=== PATIENT | female | born 1970 | race Caucasian/White ===

== ENCOUNTER 2017-12-21 18:03 | Emergency (ER) | payer OTHER, SELFPAY ==
[2017-12-21 18:13] VITALS: BP 139/85; PULSE 92; RESP 20; TEMP 37.2; O2SAT 94
--- NOTE | 2017-12-21 19:04 | ED.GENADUL_ITS ---
Discharge Plan Disposition Patient Disposition: HOME Condition: Stable Discharge Details Chief Complaint: RespSymp Clinical Impression: Infection, respiratory tract Primary Care Provider: Zaid Callahan ED Provider: Braden Garner Home Meds and New Rx's Prescriptions: New doxycycline hyclate 100 mg capsule 100 mg PO BID Qty: 14 RF: 0 benzonatate 200 mg capsule 200 mg PO TID PRN (Reason: cough) Qty: 30 RF: 0 Continue trazodone 50 MG tablet 50 mg PO HS RF: 0 citalopram 20 MG tablet 20 mg PO HS RF: 0 lorazepam 1 MG tablet 1 mg PO DAILY PRN PRNQty: 4 RF: 0 Discharge Instructions Instructions: Upper Respiratory Infection (ED), Cold Symptoms (ED) Additional Instructions: Return immediately to the emergency department for any new or significant worsening of your symptoms otherwise take medication as prescribed and follow- up with your primary care provider for reassessment if not improving over the next week. You may use the provided inhaler 1-2 puffs every 4 hours as needed for chest tightness Stand Alone Forms: Work Release Referrals: Zaid Callahan PA [Primary Care Provider] - 1 week (if not improving) Discharge Data Discharge Date/Time-TO BE ENTERED AT DEPARTURE: 12/21/17 19:35 Medical Decision Making Patient presenting the emergency department for chief complaint of cough that is worsened. Patient reports upper respiratory tract infectious type symptoms over the past 2 weeks but specifically over the past 24-48 hours she has had severe worsening of his symptom with cough now becoming productive, further fatigue malaise, and worsening of cough. Physical exam is unremarkable except for rhonchi heard diffusely throughout right side that cleared with coughing and some very mild diffuse inspiratory and expiratory wheezing. Differential diagnosis to include continued viral illness, bronchitis, or pneumonia. Patient is a heavy smoker so there is concern for possible bacterial illness given worsening of symptoms after initial 2-week course of illness. Given no specific persistent focal lung findings I do not feel that radiological imaging of the chest is warranted but I do feel that patient should be placed on antibiotics. Patient also given inhaler and Tessalon Perle prescription. Patient encouraged to return for any new or worsening symptoms otherwise follow- up with her primary care provider if not improving over the next week after discussion of diagnosis and plan of care patient has no further needs, questions , or concerns and states clear understanding to return to the emergency department for any worsening symptoms. HPI General Mode of arrival: ambulatory . Date/Time Provider Initiated Documentation: 12/21/17 18:46 . Limitations to Documentation: no limitations . Information obtained by: patient . History of Present Illness 47 year old F presents to the emergency department with the chief complaint of Cough and chest tightness, described as mild, with intensity rated at 2. Quality is described as aching (tight), and is localized to the chest. Patient started experiencing this week(s) (2) and it has been constant. No relieving factors improve symptom(s), No exacerbating factors reported . Patient did receive the following treatments prior to arrival, other (NyQuil) Related Data Home Medications Medication Instructions Recorded Confirmed citalopram 20 mg PO HS 05/11/14 12/21/17 lorazepam 1 mg PO DAILY PRN PRN #4 tab 05/11/14 12/21/17 trazodone 50 mg PO HS 05/11/14 12/21/17 benzonatate 200 mg PO TID PRN #30 cap 12/21/17 doxycycline hyclate 100 mg PO BID #14 cap 12/21/17 Previous Rx's Medication Instructions Recorded lorazepam 1 mg PO DAILY PRN PRN #4 tab 05/11/14 benzonatate 200 mg PO TID PRN #30 cap 12/21/17 doxycycline hyclate 100 mg PO BID #14 cap 12/21/17 Allergies Allergy/AdvReac Type Severity Reaction Status Date / Time Antihistamines - Piperazine Allergy Cardiac Unverified 12/21/17 18:18 Dysrythmia Sulfa (Sulfonamide Allergy Skin Rash Unverified 12/21/17 18:18 Antibiotics) General Stated Complaint: RespSymp NICKIE: 4 Review of Systems Constitutional Reports chills, Reports fatigue, Reports fever(s) and Reports malaise ENT Reports hoarseness, Reports nasal congestion, Reports sinus pressure and Reports sore throat Cardiovascular Denies dyspnea Respiratory Denies dyspnea Musculoskeletal Denies joint swelling Integumentary/Breasts Denies rash Endocrine Reports fatigue PFSH Social History Smoking/Tobacco Use Status: Current every day Exam Const General: cooperative, comfortable and no acute distress Orientation: alert, awake and oriented x3 HENMT Head: normal to inspection Ears: hearing grossly normal bilaterally Mouth: oral mucosae normal Throat: tonsils normal and posterior oropharynx abnormal erythema (mild) Eyes General: appearance normal, both eyes and all related structures Conjunctivae: conjunctivae normal Sclera: sclerae normal Neck Neck: normal visual inspection, full ROM, no lymphadenopathy, meningismus present and no JVD Resp Effort & Inspection: normal respiratory effort, able to speak in complete sentences, no audible wheezes, cough Quality of cough: actively coughing and not labored Auscultation: rhonchi right upper and right lower and wheezes scattered wheezes Cardio Rate: regular rate Rhythm: regular rhythm Heart Sounds: S1 normal and S2 normal Skin General skin exam: no rashes or lesions noted and dry skin Rashes: no rashes Neuro General: alert, awake, oriented x3 and gait normal Course Vital Signs Temperature 37.2 C 12/21/17 18:13 Pulse 92 H 12/21/17 18:13 Respiratory Rate 20 12/21/17 18:13 Blood Pressure 139/85 12/21/17 18:13 Pulse Oximetry 94 L 12/21/17 18:13 Temperature 37.2 C 12/21/17 18:13 Temperature Source Oral 12/21/17 18:13 Pulse 92 H 12/21/17 18:13 Respiratory Rate 20 12/21/17 18:13 Respiratory Effort 12/21/17 18:16 Blood Pressure 139/85 12/21/17 18:13 Blood Pressure Position Sitting 12/21/17 18:13 Pulse Oximetry 94 L 12/21/17 18:13 Oxygen Delivery Method Room Air 12/21/17 18:13 Oxygen Flow Rate 0 12/21/17 18:13 Pain Level 2 12/21/17 18:13
[2017-12-21] MEDS: Doxycycline Hyclate 100 MG CAP PO (19:20)
[2017-12-21] MEDS: Albuterol HFA 8 GM 60 PUFF INH IH (19:20)
[2017-12-21] MEDS: Benzonatate 100 MG CAP PO (19:20)
[2017-12-21] MEDS: Benzonatate 100 MG CAP 400 MG PO (19:20)
== END 2017-12-21 19:35 | disposition home or self-care (01) ==
PROVIDERS: Emergency Provider Nurse Practitioner Family; PCP Physician Assistant Medical
DX: J06.9 Acute upper respiratory infection, unspecified (principal); F17.210 Nicotine dependence, cigarettes, uncomplicated
CPT/HCPCS: 99283

== ENCOUNTER 2018-11-29 12:46 | Outpatient (REF) | payer SELFPAY ==
--- NOTE | 2018-11-29 17:00 | PAPFT_PTH ---
PATIENT: Sherri Hayes LOC: [facility] #:[id number] AGE/SX: 48/F ROOM: RE11/29/[address]: Zaid Callahan : 1970 BED: DIS: 11/29/2018 SPEC #: [id number] RECD: 11/30/18 12:58 STATUS: YANCI REShana #: [id number] LUCILA: 11/29/18 17:[address]: Zaid Callahan DEPT: [facility] Cytology RECD BY: Shraddha Arellano Tissues: 1 - CX/ENDOCX FOR PAP SMEARS Procedures: PAP THIN PREP/UVM Screening HPV DNA PROBE Comments: [id number]
== END 2018-11-29 13:06 ==
LOC: NCHCN 12:46
PROVIDERS: PCP Physician Assistant Medical; Visit Provider Physician Assistant Medical
DX: Z12.4 Encounter for screening for malignant neoplasm of cervix (principal); Z11.51 Encounter for screening for human papillomavirus (HPV)
CPT/HCPCS: 88142; 87624

== ENCOUNTER 2018-12-18 16:01 | Emergency (ER) | payer SELFPAY ==
[2018-12-18 16:07] VITALS: BP 155/103; PULSE 93; RESP 18; TEMP 36.7; O2SAT 98
--- NOTE | 2018-12-18 17:06 | W.ED.GENAD ---
Discharge Plan Disposition Patient Disposition: HOME Condition: Improving Discharge Details Chief Complaint: DentalOral Clinical Impression: Odontalgia Primary Care Provider: Zaid Callahan ED Provider: Shun Marley Home Meds and New Rx's Prescriptions: New penicillin V potassium 500 mg tablet 500 mg PO QID 10 Days Qty: 40 RF: 0 Continued trazodone 50 MG tablet 50 mg PO HS RF: 0 citalopram 20 MG tablet 20 mg PO HS RF: 0 Discharge Instructions Instructions: Toothache (ED) Additional Instructions: Continue salt water gargles, is scheduled ibuprofen. Take penicillin as prescribed. Follow-up with dentistry to establish care. Return if you have increased facial swelling, develop a fever, or any other acute concerns. May apply warm compress to area to speed healing. Medical Decision Making 48-year-old female with poor general dental care. She presents from home with day 2 of right jaw swelling. She has mild dental caries on exam with developing right buccal swelling. Consistent with periapical infection. Given dental block with improvement. Will place on penicillin. She will establish dentistry. She understands return precautions. HPI General Mode of arrival: ambulatory. Date/Time Provider Initiated Documentation: 12/18/18 16:51. Limitations to Documentation: no limitations. Information obtained by: patient. History of Present Illness 48 year old F presents to the emergency department with the chief complaint of Right facial swelling x2 days, described as moderate, Quality is described as aching and dull, and is localized to the right. Patient reports no radiation. Patient started experiencing this hour(s) and it has been constant. No relieving factors improve symptom(s), No exacerbating factors reported . Patient notes no other symptoms. and other (No drooling, change to voice, no fever. Swallowing normally.). Patient did receive the following treatments prior to arrival, NSAID Related Data Home Medications Medication Instructions Recorded Confirmed citalopram 20 mg PO HS 05/11/14 12/18/18 trazodone 50 mg PO HS 05/11/14 12/18/18 penicillin V potassium 500 mg PO QID 10 Days #40 tab 12/18/18 Previous Rx's Medication Instructions Recorded penicillin V potassium 500 mg PO QID 10 Days #40 tab 12/18/18 Allergies Allergy/AdvReac Type Severity Reaction Status Date / Time Antihistamines - Piperazine Allergy Cardiac Unverified 12/18/18 16:11 Dysrythmia Sulfa (Sulfonamide Allergy Skin Rash Unverified 12/18/18 16:11 Antibiotics) General Stated Complaint: DentalOral NICKIE: 5 Review of Systems Review of Systems Narrative: See HPI. 6 systems reviewed and otherwise negative [facility] Social History Smoking/Tobacco Use Status: Current every day Alcohol Intake: current Alcohol Intake frequency: holidays/special occasions only Drug use: Occasionally Substance use type: marijuana Do you feel safe at home: Yes Do you feel safe in your relationship?: Yes Exam Narrative Exam Narrative: GEN: awake, alert, oriented 3. Pleasant, well groomed, interactive. HEAD: Normocephalic, atraumatic ENT: Mucous membranes moist, oropharynx with dental caries right first second third mandibular molars, mild right cheek swelling. No lingual swelling. Uvula midline., External ear exam unremarkable EYES: PERRL, EOMI NECK: Full ROM, no MARIA ELENA, no menigismus EXT: Full ROM, no edema, no rash Neuro: Grossly normal neurologic exam, conversant, interactive. Psych: Speech fluent, thoughts congruent, affect normal Course Vital Signs Vital signs: Vital Signs Temperature 36.7 C 12/18/18 16:07 Pulse 93 H 12/18/18 16:07 Respiratory Rate 18 12/18/18 16:07 Blood Pressure 155/103 H 12/18/18 16:07 Pulse Oximetry 98 12/18/18 16:07 Temperature 36.7 C 12/18/18 16:07 Temperature Source Temporal Artery Scan 12/18/18 16:07 Pulse 93 H 12/18/18 16:07 Respiratory Rate 18 12/18/18 16:07 Respiratory Effort Non-Labored 12/18/18 16:07 Blood Pressure 155/103 H 12/18/18 16:07 Pulse Oximetry 98 12/18/18 16:07 Oxygen Delivery Method Room Air 12/18/18 16:07 Oxygen Flow Rate 0 12/18/18 16:07 Pain Level 8 12/18/18 17:01 Procedures Nerve Block Nerve Block 1: Local Anesthetic: Lidocaine 1% and Bupivicaine 0.25% Side: right Intraoral Nerve Block: inferior alveolar Patient Tolerated Procedure: well Complications: none
[2018-12-18] MEDS: Penicillin V POTASSIUM 500 MG TAB PO (17:27)
== END 2018-12-18 17:27 | disposition home or self-care (01) ==
PROVIDERS: Emergency Provider Emergency Medicine; PCP Physician Assistant Medical
DX: K08.89 Other specified disorders of teeth and supporting structures (principal)
CPT/HCPCS: 64400; 99283

== ENCOUNTER 2019-12-12 12:13 | Outpatient (REF) | payer SELFPAY ==
--- NOTE | 2019-12-12 | PAPFT_PTH ---
PATIENT: Sherri Hayes LOC: [facility]#:[id number] AGE/SX: 49/F ROOM: RE12/12/[address]: Zaid Callahan : 1970 BED: DIS: 12/12/2019 SPEC #: [id number] RECD: 12/13/19 12:55 STATUS: YANCI REShana #: [id number] LUCILA: 12/12/19 00:[address]: Zaid Callahan DEPT: [facility] Cytology RECD BY: Shraddha Arellano Tissues: 1 - CX/ENDOCX FOR PAP SMEARS Procedures: PAP THIN PREP/UVM Screening HPV DNA PROBE Comments: [id number]
== END 2019-12-12 12:33 ==
LOC: NCHCN 12:13
PROVIDERS: PCP Physician Assistant Medical; Visit Provider Physician Assistant Medical
DX: Z12.4 Encounter for screening for malignant neoplasm of cervix (principal); Z87.42 Personal history of other diseases of the female genital tract; Z11.51 Encounter for screening for human papillomavirus (HPV)
CPT/HCPCS: 88142; 87624

== ENCOUNTER 2021-03-28 09:39 | Emergency (ER) | payer SELFPAY ==
[2021-03-28 09:41] VITALS: BP 152/84; PULSE 77; RESP 18; TEMP 37; O2SAT 97
--- NOTE | 2021-03-28 10:00 | DI.RAD_ITS ---
Exam(s) XR HIP RT AP LAT ONLY EXAM: XR HIP RT AP LAT ONLY CLINICAL HISTORY: pain few days, fall 1 month ago. TECHNIQUE: 2D digital imaging was performed. COMPARISON: No exams were available for comparison FINDINGS: BONES: No acute fracture is present. No bony destructive lesion is seen. JOINTS: No dislocation present. SOFT TISSUE: Normal. IMPRESSION: Unremarkable radiographs of the right hip. Unremarkable radiographs of the pelvis. DATA REPOSITORY: RADIATION DOSE DELIVERED:
--- NOTE | 2021-03-28 10:00 | DI.RAD_ITS ---
Exam(s) XR LUMBAR SPINE COMPLETE EXAM: XR LUMBAR SPINE COMPLETE CLINICAL HISTORY: pain right, fall 1mo. TECHNIQUE: 2D digital imaging was performed. COMPARISON: No exams were available for comparison FINDINGS: BONES: No fracture or destructive lesion. Vertebral bodies are unremarkable. Mild facet hypertrophy i dentified L5-S1.. DISKS: Moderate to severe narrowing of the L5-S1 disc space. The remaining intervertebral disc space s are maintained. ALIGNMENT: Lumbar spinal alignment is within normal limits. SOFT TISSUE: Normal. IMPRESSION: Degenerative changes at L5-S1. No acute abnormality. DATA REPOSITORY: RADIATION DOSE DELIVERED:
--- NOTE | 2021-03-28 10:15 | ED.GENADUL_ITS ---
Discharge Plan Disposition Patient Disposition: HOME Condition: Stable Discharge Details Clinical Impression: Acute pain of right hip, Low back pain Primary Care Provider: Zaid Callahan ED Provider: Israel Kaba Home Meds and New Rx's Prescriptions: Continued trazodone 50 mg Tablet 50 mg PO QHS RF: 0 citalopram 20 mg Tablet 20 mg PO QHS RF: 0 Discharge Instructions Instructions: Acute Low Back Pain (ED), Hip Pain (ED) Care Plan Goals: Please take aleve - dose according to label. Your next dose is tonight. Please take acetaminophen (tylenol) - 650mg every 6 hours by mouth as needed for pain. Use lidocaine patches. These are [id number]. Dose according to label. Please follow-up with your primary care physician as scheduled this week. Return to the ER immediately for any worsening or new concerning symptoms. Stand Alone Forms: Work Release Referrals: Zaid Callahan PA [Primary Care Provider] - Medical Decision Making 1030??51-year-old female here with right hip pain that starts in her right buttock and radiate posterior and laterally down her leg, progressive over the past 2 days. No recent trauma. She did have a fall about a month ago and injured her foot, the fall. Foot has healed but she is concerned that she was favoring her leg and had modified gait for some time. Patient is neurovascular intact distally. She has no inflammatory changes low back or over her hip. Concern for lumbar disc herniation or nerve root compression. Consider potential for reactive arthritis post COVID-19. I will provide treatment with Toradol IV Valium p.o. --X-ray of the lumbar spine interpreted by radiology: IMPRESSION: 1. There is no evidence of acute fracture.There is no evidence of malalignment or dislocation. 2. Intervertebral disc space narrowing L5/S1 consistent with degenerative disc disease. X-ray of the right hip interpreted by radiology: IMPRESSION: There is no evidence of acute fracture.There is no evidence of malalignment or dislocation. Labs reviewed and nondiagnostic. -- Patient reassessed and has had some pain improvement. Will place lidocaine patch. -- Patient still having pain. Solu-medrol 60mg IV given. Plan for discharge with outpatient followup. Usual and customary discharge instructions reviewed with patient. -- Patient still with pain. She was able to stand and dress and use commode. I explained to patient that unfortunately we could not correct problem completely today and that healing will take time. I explained that therapies provided today include NSAID and steroid would take time to have full effect. Patient seems dissatisfied. I offered to admit the patient for pain control and she declined and requested discharge. I offered walker and PT consult and patient declined. I encouraged her to return to the ED if pain worsens and/or she cannot ambulate as could hospitalize for pain control. HPI General Mode of arrival: EMS . Date/Time Provider Initiated Documentation: 03/28/21 10:10 . Limitations to Documentation: no limitations . Information obtained by: patient and EMS . HPI Narrative: 51-year-old female here with chief complaint of right hip pain. Patient notes about 1 month ago she tripped and fell down her stairs. During the fall she hyper plantarflexed her right foot she had pain in her toes. She does not recall impacting her hip during the fall but does note that she had some discomfort in her hip that seemed to wax and wane. She was concerned that she was babying her right foot that her abnormal gait may have been hurting her hip. Over the past 2 days pain in her hip has been much worse, progressive over this time and severe now. She had difficulty sleeping last night. She has tried Aleve and Tylenol without much relief. Last dose of Aleve was last night. Patient does note pain is localized mainly into her right hip but radiates posterior laterally down her leg and is also present in her buttock. She does states she has some mild low back pain. Patient denies rash. No numbness or weakness. No history of IV drug use. Patient did have COVID-19 2.5 weeks ago and has been asymptomatic for some time. No fever. Related Data Home Medications Medication Instructions Recorded Confirmed citalopram 20 mg PO QHS 03/28/21 03/28/21 trazodone 50 mg PO QHS 03/28/21 03/28/21 Allergies Allergy/AdvReac Type Severity Reaction Status Date / Time Antihistamines - Alkylamine AdvReac Psychosis Unverified 03/28/21 09:47 Sulfa (Sulfonamide AdvReac Other (See Unverified 03/28/21 09:47 Antibiotics) Comment) General Stated Complaint: Orthopedic NICKIE: 3 Review of Systems All systems reviewed & are unremarkable except as noted in HPI and below Constitutional Constitutional: Denies fever(s) Musculoskeletal Musculoskeletal: Reports as per HPI PFSH All Active Problems (Updated 03/28/21 @ 11:36 by Israel Kaba MD) Acute pain of right hip (Acute) Low back pain (Acute) Social History Smoking/Tobacco Use Status: Current every day Tobacco Type: cigarettes Smoking risk assessment performed?: Yes Alcohol Intake: former Drug use: Never Substance use type: does not use Do you feel safe at home: Yes Do you feel safe in your relationship?: Yes Exam Const General: cooperative and no acute distress Neck Neck: trachea midline and supple Resp Auscultation: clear to auscultation bilaterally, no rales, no rhonchi and no wheezes Cardio Rate: regular rate and not tachycardic Rhythm: regular rhythm GI Palpation: soft, not firm, no guarding, no masses, not rigid and nontender Back/Spine/Pelvis Back: No erythema and No ecchymosis Thoracic/Lumbar Spine: paraspinal tenderness (rt lumbar), No thoracic spinal tenderness and No lumbar spinal tenderness Skin General skin exam: no rashes or lesions noted Neuro General: patient alert, patient awake and tone normal Extrem General: no edema Right lower extremity: hip/thigh Details: abnormal ROM Details: pain with active ROM during Details: with ABduction and to external rotation; no tenderness, no swelling, no ecchymosis and no unusual warmth Psych Appearance: grossly normal Mental Status: mental status grossly normal Course Vital Signs Vital signs: Vital Signs Temperature 37.0 C 03/28/21 09:41 Pulse 77 03/28/21 09:41 Respiratory Rate 18 03/28/21 09:41 Blood Pressure 152/84 H 03/28/21 09:41 Pulse Oximetry 97 03/28/21 09:41 Temperature 37.0 C 03/28/21 09:41 Temperature Source Temporal Artery Scan 03/28/21 09:41 Pulse 77 03/28/21 09:41 Respiratory Rate 18 03/28/21 09:41 Respiratory Effort Non-Labored 03/28/21 09:50 Blood Pressure 152/84 H 03/28/21 09:41 Blood Pressure Position Sitting 03/28/21 09:41 Pulse Oximetry 97 03/28/21 09:41 Oxygen Delivery Method Room Air 03/28/21 09:41 Oxygen Flow Rate 0 03/28/21 09:41 Pain Level 5 03/28/21 09:41
[2021-03-28] MEDS: Normal Saline Flush 10 ML SYR IVP (10:28)
[2021-03-28] MEDS: Ketorolac 30 MG/ML VIAL IVP (10:28)
[2021-03-28] MEDS: diazePAM 2 MG TAB PO (10:28)
[2021-03-28 10:33] LABS: Abs Immature Grans 0.03 10^3/uL (0.0-0.06); Absolute Basophil Count 0.04 10^3/uL (0.0-0.2); Absolute Eosinophil Count 0.08 10^3/uL (0.0-0.7); Absolute Lymphocyte Count 1.36 10^3/uL (1.2-3.4); Absolute Neutrophil Count 7.57 10^3/uL (1.2-6.7); Basophils % 0.4; Eosinophils % 0.8; HCT 45.9 % (36.0-46.0); HGB 14.8 g/dL (11.2-15.7); Immature Grans % 0.3; Lymphocytes % 14.3; MCH 30.3 pg (27.0-33.0); MCHC 32.2 % (32.0-36.0); MCV 94.1 fL (80-95); MPV 9.9 fL (8.0-11.0); Monocytes % 4.2; Nucleated RBC 0 %; Platelet Count 304 10^3/uL (130-400); RBC 4.88 10^6/uL (3.93-5.22); RDW 12.2 % (11.7-14.6); RDW-SD 42.5 fL; WBC 9.48 10^3/uL (4.4-10.8)
[2021-03-28 10:36] LABS: ESR 27 mm/hr (0-30)
[2021-03-28 10:43] LABS: BUN 9 mg/dL (7-18); CREATININE 0.6 mg/dL (0.55-1.02); Calcium 8.9 mg/dL (8.5-10.1); Chloride 106 mmol/L (98-107); Glucose 102 mg/dL (74-106); Potassium 3.9 mmol/L (3.5-5.1); Sodium 140 mmol/L (136-145)
[2021-03-28 10:47] LABS: C-Reactive Protein < 0.05 mg/dL (0.0-0.3)
--- NOTE | 2021-03-28 11:07 | DI.VRAD_ITS ---
PROCEDURE INFORMATION: Exam: XR Right Hip Exam date and time: 03/28/2021 10:13 AM Age: 51 years old Clinical indication: Hip pain; Right hip TECHNIQUE: Imaging protocol: XR Right hip. Views: 2 or 3 views hip with pelvis when performed. COMPARISON: No relevant prior studies available. FINDINGS: Bones/joints: There is no evidence of acute fracture.There is no evidence of malalignment or dislocation. Degenerative changes in the right hip Soft tissues: Unremarkable. IMPRESSION: There is no evidence of acute fracture.There is no evidence of malalignment or dislocation. Dictated and Authenticated by: Neelima Gutiérrez MD. Ordering:SANTANA Wood MD
--- NOTE | 2021-03-28 11:08 | DI.VRAD_ITS ---
PROCEDURE INFORMATION: Exam: XR Lumbosacral Spine Exam date and time: 03/28/2021 10:13 AM Age: 51 years old Clinical indication: Weakness and other: Fall x1 month ago, back pain TECHNIQUE: Imaging protocol: XR of the lumbosacral spine. Views: 4 or 5 views. COMPARISON: CR XR HIP RT AP LAT ONLY 03/28/2021 10:53 AM FINDINGS: Bones/joints: There is no evidence of acute fracture.There is no evidence of malalignment or dislocation. Intervertebral disc space narrowing L5/S1 consistent with degenerative disc disease. Soft tissues: Unremarkable. IMPRESSION: 1. There is no evidence of acute fracture.There is no evidence of malalignment or dislocation. 2. Intervertebral disc space narrowing L5/S1 consistent with degenerative disc disease. Dictated and Authenticated by: Neelima Gutiérrez MD. Ordering:SANTANA Wood MD
[2021-03-28] MEDS: Lidocaine 5% Patch 1 PATCH TP (11:35)
[2021-03-28 12:03] VITALS: BP 139/68; PULSE 67; RESP 17; TEMP 36.9; O2SAT 94
[2021-03-28] MEDS: methylPREDNISolone SUCC 125 MG VIAL 60 MG IVP (12:11)
--- NOTE | 2021-03-30 18:43 | PT.INNT ---
Date of service: 03/30/21 Time of Service: 18:43 PT Notes Visit Reasons: Renae Referral for PT was sent on 03/28/2021 at 13:05 but patient was discharged the same day. No PT services were provided for this ED admission. Thank you for the opportunity to participate in the care of this patient. Gisel Goetz PT, DPT, CLT [facility] [place], [place]
== END 2021-03-28 13:12 | disposition home or self-care (01) ==
PROVIDERS: Emergency Provider Student in an Organized Health Care Education/Training Program; PCP Physician Assistant Medical
DX: M25.551 Pain in right hip (principal); M54.50 Low back pain, unspecified; Z86.16 Personal history of COVID-19
CPT/HCPCS: 36415; 80048; 85652; 96374; 96375; 99284; 72110; 73502; 85025; 86140; 99283; J1885; J2930

== ENCOUNTER 2021-03-28 09:46 | Emergency (ER) | payer SELFPAY | END 2021-03-28 09:51 | PROVIDERS: PCP Physician Assistant Medical | DX: Z53.29 Procedure and treatment not carried out because of patient's decision for other reasons (principal) ==

== ENCOUNTER 2021-04-01 13:46 | Inpatient (IN) | payer SELFPAY ==
[2021-04-01 14:00] VITALS: BP 117/81; PULSE 78; RESP 18; TEMP 36.6; O2SAT 96
[2021-04-01 14:12] LABS: Abs Immature Grans 0.05 10^3/uL (0.0-0.06); Absolute Eosinophil Count 0.17 10^3/uL (0.0-0.7); Absolute Lymphocyte Count 2.27 10^3/uL (1.2-3.4); Basophils % 0.3; Eosinophils % 1.5; HCT 45.8 % (36.0-46.0); Immature Grans % 0.4; Lymphocytes % 19.7; MCH 30.6 pg (27.0-33.0); MCHC 32.8 % (32.0-36.0); MCV 93.5 fL (80-95); MPV 10.2 fL (8.0-11.0); Monocytes % 6.8; Neutrophils % 71.3; Nucleated RBC 0 %; Platelet Count 298 10^3/uL (130-400); RDW 12.5 % (11.7-14.6); RDW-SD 43.2 fL; WBC 11.54 10^3/uL (4.4-10.8)
[2021-04-01 14:15] LABS: Absolute Basophil Count 0.03 10^3/uL (0.0-0.2); Absolute Monocyte Count 0.78 10^3/uL (0.1-0.8); Absolute Neutrophil Count 8.23 10^3/uL (1.2-6.7)
[2021-04-01 14:22] LABS: ESR 32 mm/hr (0-30)
[2021-04-01 14:27] LABS: ALT 23 U/L (14-59); AST 18 U/L (15-37); Albumin 4.1 g/dL (3.4-5.0); Alkaline Phosphatase 82 U/L (46-116); BUN 26 mg/dL (7-18); Bilirubin, Total 0.4 mg/dL (0.2-1.0); CREATININE 0.6 mg/dL (0.55-1.02); Calcium 9.2 mg/dL (8.5-10.1); Chloride 99 mmol/L (98-107); Glucose 99 mg/dL (74-106); Potassium 3.8 mmol/L (3.5-5.1); Sodium 136 mmol/L (136-145); Total Protein 8.2 g/dL (6.4-8.2)
[2021-04-01 14:29] LABS: C-Reactive Protein < 0.05 mg/dL (0.0-0.3)
--- NOTE | 2021-04-01 14:37 | W.ED.GENAD ---
Discharge Plan Disposition Patient Disposition: [facility] INPATIENT Condition: Improving Discharge Details Clinical Impression: Lumbar disc herniation, Lumbar nerve root compression Admit Date/Time: 04/01/21 19:21 Admit Provider: Guru Fernandez Attending Provider: Guru Fernandez Primary Care Provider: Zaid Callahan ED Provider: Israel Kaba Discharge Data Discharge Date/Time-TO BE ENTERED AT DEPARTURE: 04/01/21 20:50 Medical Decision Making <Nisha Kaba MD - Last Filed: 04/16/21 10:29> Sherri Russell is a 51-year-old woman with history of depression presenting to the emergency department with right thigh and buttock pain. On exam there is mild tenderness palpation of the right buttock and right lateral thigh, lumbar spine, anterior/lateral hip and abdomen nontender to palpation. Significant pain with ranging right hip, no ranging hip 0 to 45 degrees is minimally painful. Concern for sciatica, possible cauda equina syndrome given new onset constipation. Very low suspicion for process involving the soft tissue such as myositis, deep space abscess given no identifiable risk factors and inconsistent exam. Exam/history is not consistent with septic arthritis, sepsis. Plan for MRI lumbar spine, screening labs. Patient received fentanyl en route, pain controlled at this time. Labs reviewed, WBC 11.54, ESR 32. Pt signed out to Dr. Israel Kaba at time of shift change with MRI, dispo pending. Medical Records Medical records reviewed: Yes I reviewed the patient's medical records. Lab Data Lab results reviewed: Yes I reviewed the patient's lab results. Labs: Laboratory Tests Range/Units 04/01/21 04/01/21 04/01/21 14:00 14:00 14:00 WBC (4.4-10.8) 10^3/uL 11.54 H RBC (3.93-5.22) 10^6/uL 4.90 Hgb (11.2-15.7) g/dL 15.0 Hct (36.0-46.0) % 45.8 MCV (80-95) fL 93.5 MCH (27.0-33.0) pg 30.6 MCHC (32.0-36.0) % 32.8 RDW (11.7-14.6) % 12.5 Plt Count (130-400) 10^3/uL 298 MPV (8.0-11.0) fL 10.2 Immature Gran % 0.4 Neutrophils % 71.3 Lymphocytes % 19.7 Monocytes % 6.8 Eosinophils % 1.5 Basophils % 0.3 Nucleated RBC % % 0 Absolute Neutrophils (1.2-6.7) 10^3/uL 8.23 H Absolute Lymphocytes (1.2-3.4) 10^3/uL 2.27 Absolute Monocytes (0.1-0.8) 10^3/uL 0.78 Absolute Eosinophils (0.0-0.7) 10^3/uL 0.17 Absolute Basophils (0.0-0.2) 10^3/uL 0.03 ESR (0-30) mm/hr 32 H Sodium (136-145) mmol/L 136 Potassium (3.5-5.1) mmol/L 3.8 Chloride (98-107) mmol/L 99 Carbon Dioxide (21.0-32.0) mmol/L 26.0 Anion Gap (3-11) mmol/L 11.0 BUN (7-18) mg/dL 26 H Creatinine (0.55-1.02) mg/dL 0.6 Estimated GFR/1.73 m2 (mL/min/1.73m2) >= 60.00 Glucose (74-106) mg/dL 99 Calcium (8.5-10.1) mg/dL 9.2 Total Bilirubin (0.2-1.0) mg/dL 0.4 AST (15-37) U/L 18 ALT (14-59) U/L 23 Alkaline Phosphatase (46-116) U/L 82 C-Reactive Protein (0.0-0.3) mg/dL < 0.05 Total Protein (6.4-8.2) g/dL 8.2 Albumin (3.4-5.0) g/dL 4.1 <Israel Kaba MD - Last Filed: 04/01/21 20:30> Care signed out by Dr. Mary Kaba with plan to follow-up on MRI of the lumbar spine and reassess patient for disposition. MRI was reviewed and interpreted by radiology:IMPRESSION: Right foraminal disc protrusion at L4-5 causing nerve root impingement. Degenerative disc changes at L5-S1 causing mild left neural foraminal narrowing. Patient was treated with Dilaudid IM, Toradol IV, and prednisone 40 mg p.o. She was reassessed and continued to have pain and was not able to ambulate. Plan for hospitalization for ambulatory dysfunction and continued pain control. I called and spoke with on-call hospitalist, Dr. Jackson, discussed ED presentation and course, she will admit the patient. Lab Data Lab results reviewed: Yes I reviewed the patient's lab results. Labs: Laboratory Tests Range/Units 04/01/21 04/01/21 04/01/21 14:00 14:00 14:00 WBC (4.4-10.8) 10^3/uL 11.54 H RBC (3.93-5.22) 10^6/uL 4.90 Hgb (11.2-15.7) g/dL 15.0 Hct (36.0-46.0) % 45.8 MCV (80-95) fL 93.5 MCH (27.0-33.0) pg 30.6 MCHC (32.0-36.0) % 32.8 RDW (11.7-14.6) % 12.5 Plt Count (130-400) 10^3/uL 298 MPV (8.0-11.0) fL 10.2 Immature Gran % 0.4 Neutrophils % 71.3 Lymphocytes % 19.7 Monocytes % 6.8 Eosinophils % 1.5 Basophils % 0.3 Nucleated RBC % % 0 Absolute Neutrophils (1.2-6.7) 10^3/uL 8.23 H Absolute Lymphocytes (1.2-3.4) 10^3/uL 2.27 Absolute Monocytes (0.1-0.8) 10^3/uL 0.78 Absolute Eosinophils (0.0-0.7) 10^3/uL 0.17 Absolute Basophils (0.0-0.2) 10^3/uL 0.03 ESR (0-30) mm/hr 32 H Sodium (136-145) mmol/L 136 Potassium (3.5-5.1) mmol/L 3.8 Chloride (98-107) mmol/L 99 Carbon Dioxide (21.0-32.0) mmol/L 26.0 Anion Gap (3-11) mmol/L 11.0 BUN (7-18) mg/dL 26 H Creatinine (0.55-1.02) mg/dL 0.6 Estimated GFR/1.73 m2 (mL/min/1.73m2) >= 60.00 Glucose (74-106) mg/dL 99 Calcium (8.5-10.1) mg/dL 9.2 Total Bilirubin (0.2-1.0) mg/dL 0.4 AST (15-37) U/L 18 ALT (14-59) U/L 23 Alkaline Phosphatase (46-116) U/L 82 C-Reactive Protein (0.0-0.3) mg/dL < 0.05 Total Protein (6.4-8.2) g/dL 8.2 Albumin (3.4-5.0) g/dL 4.1 HPI <Nisha Kaba MD - Last Filed: 04/16/21 10:29> General Mode of arrival: EMS. Date/Time Provider Initiated Documentation: 04/01/21 13:53. Limitations to Documentation: no limitations. Information obtained by: patient, RN notes reviewed and old records reviewed. HPI Narrative: Sherri Russell is a 51-year-old woman with history of depression presenting to the emergency department with right thigh and buttock pain. Per record review, patient was seen here 03/28/2021 for same, had lumbar x-rays, right hip x-rays that were negative for acute process. Patient reports that approximately 1.5 months ago she tripped over her cat, and has been having progressively worsening pain in the right lateral thigh and right buttock since that time. She reports that she did have some pain in those areas prior to the incident, but it has worsened greatly since. She reports that injury was a twisting injury and there was no impact. 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 Patient reports that since she was discharged here she has essentially been lying in bed. She reports that her has given her a bucket and she has been sitting up on the edge of the bed, peeing in a bucket, and lying down flat again and has otherwise not stood up or sat secondary to pain. She reports that pain is much worse with ranging her right hip, mildly worse with palpating the right lateral thigh. She denies any other pain, fever, cough, shortness of breath, vomiting, diarrhea, numbness, weakness, rash. Patient reports that she has not had a bowel movement since 03/26, though she states that she thinks this is because she has had relatively little to eat secondary to pain. She denies urinary changes. Patient denies any history of IV drug use. She denies back surgeries or any prior injury to the right thigh. Related Data Home Medications Medication Instructions Recorded Confirmed citalopram 20 mg tablet 20 mg PO HS 05/11/14 12/18/18 trazodone 50 mg tablet 50 mg PO HS 05/11/14 12/18/18 citalopram 20 mg tablet 20 mg PO QHS 03/28/21 04/01/21 trazodone 50 mg tablet 50 mg PO QHS 03/28/21 04/01/21 Acetaminophen [Tylenol] 650 mg PO 0600,1000,1400,1800 #0 04/03/21 ibuprofen 600 mg tablet 600 mg PO QID #30 tab 04/03/21 lidocaine 5 % topical patch 2 patch TOPICAL Q24H #14 ea 04/03/21 tramadol 50 mg tablet 100 mg PO Q6H PRN PRN #12 tab 04/03/21 Previous Rx's Medication Instructions Recorded Acetaminophen [Tylenol] 650 mg PO 0600,1000,1400,1800 #0 04/03/21 ibuprofen 600 mg tablet 600 mg PO QID #30 tab 04/03/21 lidocaine 5 % topical patch 2 patch TOPICAL Q24H #14 ea 04/03/21 tramadol 50 mg tablet 100 mg PO Q6H PRN PRN #12 tab 04/03/21 Allergies Allergy/AdvReac Type Severity Reaction Status Date / Time Antihistamines - Piperazine Allergy Cardiac Unverified 04/07/21 13:20 Dysrythmia Sulfa (Sulfonamide Allergy Skin Rash Unverified 04/07/21 13:20 Antibiotics) Antihistamines - Alkylamine AdvReac Psychosis Unverified 04/07/21 13:20 General Stated Complaint: Orthopedic NICKIE: 4 Review of Systems <Nisha Kaba MD - Last Filed: 04/16/21 10:29> Narrative: Constitutional: denies fevers Eyes: denies eye pain ENT: denies ear pain, dental pain, sore throat Cardiovascular: denies chest pain, edema Respiratory: denies SOB, cough GI: denies abdominal pain, vomiting, diarrhea : denies flank pain MSK: Reports right lateral thigh pain, right buttock pain, denies back pain, neck pain, other arthralgias, myalgias Skin: denies rash Neuro: denies headaches, numbness, weakness PFSH <Nisha Kaba MD - Last Filed: 04/16/21 10:29> All Active Problems (Updated 04/07/21 @ 13:20 by Donna Holguin) Acute pain of right hip (Acute) Low back pain (Acute) Acute lumbar radiculopathy (Acute) L4-L5 disc bulge (Acute) Lumbar disc herniation (Acute) Lumbar nerve root compression (Acute) Medical History Former consumption of alcohol Insomnia Smoker Social History (System 04/07/21 @ 13:20 by Donna Holguin) Smoking/Tobacco Use Status: Current every day Tobacco Type: cigarettes Smoking risk assessment performed?: Yes Alcohol Intake: former Drug use: Never Substance use type: does not use Do you feel safe at home: Yes Do you feel safe in your relationship?: Yes Exam <Nisha Kaba MD - Last Filed: 04/16/21 10:29> Narrative Exam Narrative: Constitutional: well and [id number], pleasant, conversing normally HENT: head atraumatic/normocephalic/normal inspection, mucous membranes moist Eyes: conjunctiva normal, sclera normal, pupils 3mm b/l Neck: no stridor, normal ROM, trachea midline Resp: normal work of breathing, speaking in full sentences Cardio: normal rate, normal rhythm GI: abdomen soft, non-tender, non-distended Back: normal inspection, no rash, no tenderness palpation of the lumbar spine or lumbar paraspinals Skin: warm, dry, normal color, no rash Neuro: alert, not altered, grossly non-focal, normal tone, normal motor function of the right lower extremity, sensation intact Ext: Right inguinal area nontender to palpation, right anterior and lateral hip nontender to palpation, right buttock with mild tenderness that reproduces pain, right lateral thigh with mild tenderness that reproduces pain, no deformity/crepitus/mass/overlying skin changes to right buttock/lateral thigh and areas of reported tenderness. Positive straight leg test on the right, negative straight leg test on the left. Patient is able to fully extend right hip and flex to approximately 45 degrees before severe pain is elicited. DP pulses intact and symmetric. Psych: normal mood, normal affect, normal behavior Course <Nisha Kaba MD - Last Filed: 04/16/21 10:29> Vital Signs Vital signs: Vital Signs Temperature 36.6 C 04/01/21 14:00 Respiratory Rate 18 04/01/21 14:00 Pulse Oximetry 96 04/01/21 14:00 Temperature 36.6 C 04/01/21 14:00 Temperature Source Skin 04/01/21 14:00 Respiratory Rate 18 04/01/21 14:00 Respiratory Effort 04/01/21 14:00 Pulse Oximetry 96 04/01/21 14:00 Oxygen Delivery Method Room Air 04/01/21 14:00 Oxygen Flow Rate 0 04/01/21 14:00 Pain Level 6 04/01/21 14:00 Lab/Test Results Lab/Test Results: Laboratory Tests Range/Units 04/01/21 04/01/21 04/01/21 14:00 14:00 14:00 WBC (4.4-10.8) 10^3/uL 11.54 H RBC (3.93-5.22) 10^6/uL 4.90 Hgb (11.2-15.7) g/dL 15.0 Hct (36.0-46.0) % 45.8 MCV (80-95) fL 93.5 MCH (27.0-33.0) pg 30.6 MCHC (32.0-36.0) % 32.8 RDW (11.7-14.6) % 12.5 Plt Count (130-400) 10^3/uL 298 MPV (8.0-11.0) fL 10.2 Immature Gran % 0.4 Neutrophils % 71.3 Lymphocytes % 19.7 Monocytes % 6.8 Eosinophils % 1.5 Basophils % 0.3 Nucleated RBC % % 0 Absolute Neutrophils (1.2-6.7) 10^3/uL 8.23 H Absolute Lymphocytes (1.2-3.4) 10^3/uL 2.27 Absolute Monocytes (0.1-0.8) 10^3/uL 0.78 Absolute Eosinophils (0.0-0.7) 10^3/uL 0.17 Absolute Basophils (0.0-0.2) 10^3/uL 0.03 ESR (0-30) mm/hr 32 H Sodium (136-145) mmol/L 136 Potassium (3.5-5.1) mmol/L 3.8 Chloride (98-107) mmol/L 99 Carbon Dioxide (21.0-32.0) mmol/L 26.0 Anion Gap (3-11) mmol/L 11.0 BUN (7-18) mg/dL 26 H Creatinine (0.55-1.02) mg/dL 0.6 Estimated GFR/1.73 m2 (mL/min/1.73m2) >= 60.00 Glucose (74-106) mg/dL 99 Calcium (8.5-10.1) mg/dL 9.2 Total Bilirubin (0.2-1.0) mg/dL 0.4 AST (15-37) U/L 18 ALT (14-59) U/L 23 Alkaline Phosphatase (46-116) U/L 82 C-Reactive Protein (0.0-0.3) mg/dL < 0.05 Total Protein (6.4-8.2) g/dL 8.2 Albumin (3.4-5.0) g/dL 4.1 Sign Out <Nisha Kaba MD - Last Filed: 04/16/21 10:29> Sign Out Data: Sign Out Comment: Patient signed out to Dr. Israel Kaba at time of shift change with MRI, reassessment pending Last updated by Nisha Kaba MD at 04/01/21 15:35
--- NOTE | 2021-04-01 15:45 | DI.MRI_ITS ---
Exam(s) MR LUMBAR SPINE WO EXAM: MR LUMBAR SPINE WO CLINICAL HISTORY: right thigh and buttock pain. TECHNIQUE: Multiplanar multisequence MRI of the Lumbar spine was performed. An accelerated protocol was performed due to patient's pain. COMPARISON: CR,XR XR LUMBAR SPINE COMPLETE from 03/28/2021 FINDINGS: Bones: The last intervertebral disc space is designated the L5/S1 level for the numbering purpose of this examination. The vertebral body heights are well maintained. Alignment is satisfactory. The ma rrow signal characteristics are unremarkable. Cord: The conus tip ends at the T12 level. It is of normal size and signal intensity. T12-L1: No disc herniations or bulges are present. No central spinal canal or neural foraminal stenos is. L1-2: No disc herniations or bulges are present. No central spinal canal or neural foraminal stenosis . L2-3: No disc herniations or bulges are present. No central spinal canal or neural foraminal stenosis . L3-4: No disc herniations or bulges are present. No central spinal canal or neural foraminal stenosis . L4-5: Right foraminal disc protrusion causing narrowing of the normal foramen and impinging on the ex iting nerve root.. No central spinal canal stenosis. L5-S1: Moderate loss of disc height. Degenerative signal changes in the ankle endplates. Mild disc bulging, eccentric toward the left, causing mild neural foraminal narrowing.. No central spinal can al stenosis. Soft tissues: The visualized SI joints and sacrum are well maintained. The paraspinal soft tissues ar e unremarkable. IMPRESSION: Right foraminal disc protrusion at L4-5 causing nerve root impingement. Degenerative disc changes at L5-S1 causing mild left neural foraminal narrowing. DATA REPOSITORY:
[2021-04-01] MEDS: Ketorolac 15 MG/ML VIAL IVP (16:16)
[2021-04-01] MEDS: predniSONE 20 MG TAB 40 MG PO (16:17)
[2021-04-01] MEDS: HYDROmorphone 2 MG/ML VIAL 1 MG IM (16:17)
[2021-04-01 16:28] VITALS: BP 127/73; PULSE 74; RESP 18; O2SAT 96
[2021-04-01 18:17] VITALS: BP 116/69; PULSE 72; RESP 18; O2SAT 94
--- NOTE | 2021-04-01 19:46 | W.PM.HP.N ---
Date of service: 04/01/21 Time of Service: 19:46 Assessment and Plan Assessment and plan (1) Acute lumbar radiculopathy: Status: Acute Assessment and plan: MRI obtained shows L4-L5 disc protrusion with nerve root compression as the cause of her pain that has been refractory to outpatient pain control regimens. She will be admitted for a more aggressive pain regimen. She did receive a dose of steroids in the ED. I did consider these but they have shown little to no benefit in clinical studies so will hold off for now. - 1g Tylenol q6h - ibuprofen 600mg tid prn - 2mg IV morphine q4h prn - Miralax daily while on narcotics (2) Smoker: Status: Acute Assessment and plan: Long standing nicotine addiction. -nicotine patches available as needed (3) Impaired ambulation: Status: Acute Assessment and plan: Due to pain. I am hopeful that better pain control her ambulation will improve. - pain control - PT consult placed (4) Former consumption of alcohol: Status: Acute Assessment and plan: Former alcohol use disorder but she stopped drinking several years ago, no acute concerns. (5) Insomnia: Status: Acute Assessment and plan: She takes trazodone and citalopram every night at home to help with sleep issues, we will continue this. - continue home trazadone - continue home citalopram Qualifiers: Insomnia type: unspecified Qualified Code(s): G47.00 - Insomnia, unspecified History of Present Illness This is an otherwise healthy 51 yo female who initially presented to the ED on 03/28/21 for hip and back pain. At that visit Xrays of the hip and lumbar spine were obtained and non-revealing. She was offered admission at that time for pain control but the patient refused and requested discharge to attempt a home outpatient pain regimen. Unfortunately she did not improve in the interim and developed worsening pain. She represented to the ED today for this reason. She underwent MRI that found L4-L5 right forimanal disc protrudement causing nerve root impingement. She has received IM Dilaudid, tordal and prednisone i nthe Ed without much improvement in her pain. She will be admitted for acute lumbar radiculopathy refractory to outpatient pain management. She used to be a heavy drinker, however stopped drinking a several years ago. She denies any drug use (some recreational marijuana use). She is a current smoker of 10 cigarettes a day.She has never had this sort of pain previously. She denies and bladder or bowel dysfunction and does not have any inner thigh parasthesias. He denies chest pain, shortness of breath, abdominal pains or any other symptoms to speak of aside from the pain that is in her lower pain, right hip and down the right leg. She would like to be full code. Review of Systems All systems reviewed & are unremarkable except as noted in HPI and below PFSH All Active Problems (Updated 04/01/21 @ 21:39 by Marta Treviño MD) Insomnia (Acute) Former consumption of alcohol (Acute) Lumbar disc herniation (Acute) Lumbar nerve root compression (Acute) Impaired ambulation (Acute) Smoker (Acute) L4-L5 disc bulge (Acute) Acute lumbar radiculopathy (Acute) Acute pain of right hip (Acute) Low back pain (Acute) Social History Smoking/Tobacco Use Status: Current every day Tobacco Type: cigarettes Smoking risk assessment performed?: Yes Alcohol Intake: former Drug use: Never Substance use type: does not use Do you feel safe at home: Yes Do you feel safe in your relationship?: Yes Meds Allergies and Home Medications Allergies Allergy/AdvReac Type Severity Reaction Status Date / Time Antihistamines - Alkylamine AdvReac Psychosis Unverified 04/01/21 16:16 Sulfa (Sulfonamide AdvReac Other (See Unverified 04/01/21 16:16 Antibiotics) Comment) Home Medications Medication Instructions Recorded Confirmed Type citalopram 20 mg PO QHS 03/28/21 04/01/21 History trazodone 50 mg PO QHS 03/28/21 04/01/21 History Exam Const General: no acute distress Nutritional Appearance: well nourished [facility] Head: normocephalic Ears: external ears normal and no periauricular adenopathy General nose exam: nasal mucous membranes and turbinates normal Face and sinus: sinuses nontender Mouth: oropharynx normal and moist mucous membranes Teeth and gingiva: dentition normal Eyes General: appearance normal, both eyes and all related structures Pupils: PERRL Neck Neck: normal visual inspection and no lymphadenopathy Chest Chest: normal inspection of the chest Resp Effort & Inspection: normal respiratory effort Auscultation: clear to auscultation bilaterally, no rales, no rhonchi and no wheezes Cardio Rate: regular rate Rhythm: regular rhythm Heart Sounds: S1 normal, S2 normal and no murmurs Pulses: radial pulses present bilaterally GI Inspection: normal to inspection Palpation: soft Skin General skin exam: no rashes or lesions noted Neuro General: patient alert, patient awake and patient oriented x3 Extrem General: no clubbing, cyanosis or edema Psych Mental Status: mental status grossly normal Affect: normal affect Attitude: cooperative Results Labs Result diagrams: 04/01/21 14:00 04/01/21 14:00 Labs: Laboratory Results - last 24 hr 04/01/21 04/01/21 04/01/21 14:00 14:00 14:00 WBC 11.54 H RBC 4.90 Hgb 15.0 Hct 45.8 MCV 93.5 MCH 30.6 MCHC 32.8 RDW 12.5 Plt Count 298 MPV 10.2 Immature Gran % 0.4 Neutrophils % 71.3 Lymphocytes % 19.7 Monocytes % 6.8 Eosinophils % 1.5 Basophils % 0.3 Nucleated RBC % 0 Absolute Neutrophils 8.23 H Absolute Lymphocytes 2.27 Absolute Monocytes 0.78 Absolute Eosinophils 0.17 Absolute Basophils 0.03 ESR 32 H Sodium 136 Potassium 3.8 Chloride 99 Carbon Dioxide 26.0 Anion Gap 11.0 BUN 26 H Creatinine 0.6 Estimated GFR/1.73 m2 >= 60.00 Glucose 99 Calcium 9.2 Total Bilirubin 0.4 AST 18 ALT 23 Alkaline Phosphatase 82 C-Reactive Protein < 0.05 Total Protein 8.2 Albumin 4.1 Last Vital Signs Temp 36.6 C 04/01/21 14:00 Pulse 72 04/01/21 18:17 Resp 18 04/01/21 18:17 BP 116/69 04/01/21 18:17 Pulse Ox 94 04/01/21 18:17
[2021-04-01 20:39] VITALS: BP 118/69; PULSE 72; TEMP 36.3; O2SAT 92
[2021-04-01 21:00] VITALS: BP 112/72; BP 112/74; PULSE 72; PULSE 74; RESP 16; TEMP 36.9; O2SAT 96
[2021-04-01 21:01] LABS: Source Nasal/Nares
[2021-04-01] MEDS: Enoxaparin 40 MG/0.4 ML SYR SC (21:53)
[2021-04-01] MEDS: MORPHine 4 MG/ML SYR 2 MG IVP (21:53)
[2021-04-01] MEDS: Citalopram 20 MG TAB PO (21:54)
[2021-04-01] MEDS: traZODone 50 MG TAB PO (21:54)
[2021-04-01] MEDS: Acetaminophen 500 MG TAB 1000 MG PO (21:54)
[2021-04-01] MEDS: Normal Saline Flush 10 ML SYR IVP (21:55)
[2021-04-01 23:30] VITALS: BP 103/62; PULSE 82; RESP 16; TEMP 36.9; O2SAT 95
[2021-04-02 00:12] LABS: COVID-19 PCR Negative (Negative)
[2021-04-02 03:20] VITALS: BP 111/66; PULSE 80; RESP 17; TEMP 36.8; O2SAT 93
[2021-04-02] MEDS: Ibuprofen 600 MG TAB PO ×4 (03:31→20:51)
[2021-04-02] MEDS: MORPHine 4 MG/ML SYR 2 MG IVP ×3 (06:42→22:27)
[2021-04-02] MEDS: Acetaminophen 500 MG TAB 1000 MG PO (06:43)
[2021-04-02] MEDS: Docusate Sodium 100 MG CAP PO (06:44)
[2021-04-02] MEDS: Normal Saline Flush 10 ML SYR IVP ×3 (06:44→22:28)
[2021-04-02 06:57] LABS: Abs Immature Grans 0.01 10^3/uL (0.0-0.06); Absolute Basophil Count 0.01 10^3/uL (0.0-0.2); Absolute Eosinophil Count 0.02 10^3/uL (0.0-0.7); Absolute Lymphocyte Count 1.54 10^3/uL (1.2-3.4); Absolute Monocyte Count 0.39 10^3/uL (0.1-0.8); Basophils % 0.1; Eosinophils % 0.3; HCT 46.4 % (36.0-46.0); HGB 15.1 g/dL (11.2-15.7); Immature Grans % 0.1; Lymphocytes % 20.7; MCH 30.6 pg (27.0-33.0); MCHC 32.5 % (32.0-36.0); MCV 93.9 fL (80-95); MPV 10.3 fL (8.0-11.0); Monocytes % 5.2; Neutrophils % 73.6; Nucleated RBC 0 %; Platelet Count 303 10^3/uL (130-400); RBC 4.94 10^6/uL (3.93-5.22); RDW 12.3 % (11.7-14.6); RDW-SD 42.6 fL; WBC 7.44 10^3/uL (4.4-10.8)
[2021-04-02 07:01] LABS: Absolute Neutrophil Count 5.48 10^3/uL (1.2-6.7)
[2021-04-02 07:05] LABS: BUN 28 mg/dL (7-18); CREATININE 0.6 mg/dL (0.55-1.02); Calcium 9.5 mg/dL (8.5-10.1); Chloride 99 mmol/L (98-107); Glucose 110 mg/dL (74-106); Potassium 4.4 mmol/L (3.5-5.1); Sodium 133 mmol/L (136-145)
[2021-04-02 07:46] VITALS: BP 106/67; PULSE 65; RESP 18; TEMP 36.4; O2SAT 95
[2021-04-02] MEDS: Polyethylene Glycol 3350 17 GM PACKET PO (08:05)
--- NOTE | 2021-04-02 08:52 | PDOC.CMIN ---
- If Service Date Differs Date of service: 04/02/21 Time of Service: 08:52 Care Management Initial Assess REASON FOR HOSPITALIZATION:: acute lumbar radiculopathy PAST MEDICAL HISTORY/PAST SURGICAL HISTORY:: All Active Problems (Updated 04/01/21 @ 21:39 by Marta Treviño MD). Insomnia (Acute). Former consumption of alcohol (Acute). Lumbar disc herniation (Acute). Lumbar nerve root compression (Acute). Impaired ambulation (Acute). Smoker (Acute). L4-L5 disc bulge (Acute). Acute lumbar radiculopathy (Acute). Acute pain of right hip (Acute). Low back pain (Acute) PREVIOUS FUNCTIONAL STATUS/SOCIAL/FAMILY SUPPORTS:: Sherri lives in a single family home in [place] with her fiancee and his father. She has 3 children - 2 sons who live locally and a daughter in [place]. 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 CURRENT FUNCTIONAL STATUS:: Sherri was sitting up in bed when CM met with her. She was pleasant and stated that her pain is much better than when she was first admitted. Sherri did state however that she is unable to walk at all. A PT consult has been ordered. Sherri also shared that she has no insurance. She has a full time staff interpreter job and is now eligible for benefits but this hospital stay won't be covered. CM provided her with a Financial Assist packet. ADVANCE DIRECTIVES:: none on file Has patient been provided with info about the portal/API?: Yes Did the patient sign up for the portal?: No CODE STATUS:: Full Code INSURANCE COVERAGE / FINANCIAL ISSUES:: none currently CURRENT HOME/COMMUNITY SERVICES/EQUIPMENT:: none currently PRIMARY CARE PHYSICIAN:: Zaid Callahan POTENTIAL DISCHARGE NEEDS:: follow up with PCP and plan of care PATIENT/FAMILY EDUCATION NEEDS:: Review of discharge instructions, activity, limitations, medications, follow up plan, discuss [employer] TRANSPORTATION:: via private vehicle with family PLAN:: Sherri will likely be discharged home with no new services. She will follow up with her community providers and plan of care and transport with family. CM will continue to support Sherri and her discharge needs.
[2021-04-02] MEDS: Lidocaine 5% Patch 2 PATCH TP (10:45)
[2021-04-02] MEDS: Acetaminophen 325 MG TAB 650 MG PO ×3 (11:00→17:36)
[2021-04-02] MEDS: Milk of Magnesia 30 ML CUP PO (11:36)
[2021-04-02 11:41] VITALS: BP 117/79; PULSE 77; RESP 18; TEMP 37; O2SAT 95
[2021-04-02] MEDS: diazePAM 2 MG TAB PO (12:54)
--- NOTE | 2021-04-02 13:38 | IN_ITS ---
Date of service: 04/02/21 Time of Service: 13:38 PT Notes Visit Reasons: Lumbar Disc Protrusion Physical Therapy Inpatient Initial Evaluation Date: 04/02/2021 Referring Doctor: Marta Jackson MD PT Orders: PT CONSULT: Eval/Treat Precautions: Fall. Standard. Activity as tolerated. 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 PMHX: All Active Problems (Updated 04/01/21 @ 21:39 by Marta Treviño MD) Insomnia (Acute) Former consumption of alcohol (Acute) Lumbar disc herniation (Acute) Lumbar nerve root compression (Acute) Impaired ambulation (Acute) Smoker (Acute) L4-L5 disc bulge (Acute) Acute lumbar radiculopathy (Acute) Acute pain of right hip (Acute) Low back pain (Acute) Social History/Home Situation: Lives with jose in a private room with 5 steps to enter and with 10 steps to the second of the house where their bedroom is. 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 Independent with all aspects of ADLs prior to admission Equipment Owned/DME: None Subjective: Kylie indicates that her symptoms began a month ago when she accidentally stepped on her cat resting on the top step of the stairs to the bedroom on her way down. She indicates that it was around 9 PM and the area was dark and she was not able to see anything on the floor. She states that she is slid down 4 steps and injured her right toes which caused her to limp and favor that side for over a month. She indicated that last week with her symptoms almost fully resolved, she engaged in sexual activity with her fianc? and ended up with worsening symptoms of right low back pain and right hip pain. Patient got into excruciating pain and needed to lie back down into position of comfort. Objective: General Observation: Highly favoring R hip and R buttock. Unable to tolerate sitting position for more than a minute. Mental Status: Alert and oriented as to person, place, time, and purpose. Able to pay attention, focus, and respond appropriately. Pain: 10/10 while sitting at edge of bed and on palpation of R gluteal area along the piriformis muscle ROM: Trunk: Unable to test due to severe pain Right Upper Extremity: Shoulder Flexion WFL. Shoulder abduction WFL. Elbow flexion WFL. Wrist flexion WFL. Functional opening and closing of hand WFL. Left Upper Extremity: Shoulder Flexion WFL. Shoulder abduction WFL. Elbow flexion WFL. Wrist flexion WFL. Functional opening and closing of hand WFL. Right Lower Extremity: Hip flexion WFL. Hip abduction WFL. Knee flexion WFL. Ankle dorsiflexion WFL. Ankle plantarflexion WFL. Left Lower Extremity: Hip flexion WFL. Hip abduction WFL. Knee flexion WFL. An kle dorsiflexion WFL. Ankle plantarflexion WFL. Strength: Right Upper Extremity: Shoulder flexors 5/5. Shoulder abductors 5/5. Elbow flexors 5/5. Elbow extensors 5/5. Rn Homecare strong. Left Upper Extremity: Shoulder flexors 5/5. Shoulder abductors 5/5. Elbow flexors 5/5. Elbow extensors 5/5. Rn Homecare strong. Right Lower Extremity: Hip flexors 3/5. Hip abductors 3/5. Knee flexors 3/5. Knee extensors 3/5. Ankle dorsiflexors 5/5. Ankle plantarflexors 5/5. Left Lower Extremity: Hip flexors 3/5. Hip abductors 3/5. Knee flexors 3/5. Knee extensors 3/5. Ankle dorsiflexors 5/5. Ankle plantarflexors 5/5. Bed Mobility/Transfers: Rolling with independent Left side-lying to sit with standby assist with HOB at 45 degrees Sit to left side-lying with standby assist Sit to stand unable at this time Stand to sit unable at this time Bed to bedside commode unable at this time Bedside commode to bed unable at this time Bed to reclining chair unable at this time Reclining chair to bed unable at this time Gait: Unable at this time Balance: Static Sitting: Poor Dynamic Sitting: Poor Static Standing: Unable at this time Dynamic Standing: Unable at this time Special Tests: Mobility Limitations Standardized Measure [facility] AM-PAC 6 clicks Basic Mobility Inpatient Short Form: Raw Score: 7 CMS Score: 92% deficit Tripod sign: Positive SLR: Unable FABERE Test: Unable Palpation of R lumbar paraspinals: Tenderness felt Informed Consent/Education: Patient was instructed in purpose of PT consult and plan of care. Agreeable to proceed with established PT POC to achieve personal goals. Assessment: L4-L5 radiculopaty hinders patient from performing mobility ADLs for this assessment. Severe nerve pain reported with pgentle pressure on piriformis muscle on the R. Will wait until pain is better managed before another attempt at mobility assessment is made tomorrow morning. Patient presents with clinical signs and symptoms consistent with current/admitting diagnoses that have resulted to mobility limitations, gait instability, generalized weakness, and overall ADL decline as demonstrated by the following impairment level findings: 1. Decreased strength to R hip and knee major muscle groups 2. Impaired sitting/standing balance 3. Impaired activity tolerance 4. Limitation of joint range of motion in R hip 5. R lumbar thigh and buttock pain at 10/10 Impairments are contributing to the following functional limitations: 1. Decline in bed mobility skills 2. Decline in transfer skills 3. Difficulty with ambulation without assistive device and physical assistance 4. Increased completion time for mobility ADL performance 5. Increased risk for falls 6. Difficulty with managing steps alone safely Patient is assessed as a 80408 moderate complexity based on the following: History: 51-year-old female with past medical history as indicated above Examination: Demonstrable impairment in strength, balance, and mobility level with underlying impairments and functional limitations as exhibited above as well as deficit score of 100% utilizing the [facility] Mobility Inpatient Short Form Presentation: Unstable Decision Makin moderate complexity Goals: Goals X1 week 1. Supine-Sit independent 2. Sit-Supine independent 3. Sit-Stand independent 4. Stand-Sit independent with no AD 5. Bed-Chair independent with no AD 6. Chair-Bed independent with no AD 7. Independent gait on level surface with use of FWW for at least 200 feet without report of pain nor dyspnea 8. Independent stair negotiation while holding onto B rails for at least 10 steps without report of pain nor dyspnea 9. Good static and dynamic standing balance/tolerance Plan of Care/Treatment Plan: 1-2x/day, 7 days/week x 1 week. Plan of care has been reviewed with the [employer] providing the service under Physical Therapy direction. Initiate Physical Therapy intervention for pain management as needed, strengthening, bed mobility, transfers, gait, stairs, balance training, and use of assistive device. DISCHARGE RECOMMENDATIONS: [] Home with no services [] [] Home with services [specify] [X] Home with outpatient PT. Home when medically cleared by hospitalist. May benefit from outpatient PT services to continue back rehabilitation for pain management, core strengthening, and mobility progression. [] SNF for continued rehabilitation [] [] [facility] [] [] SNF versus LTC based on ability to participate and progress [] TREATMENT CODE/TIME: 90348 x 28 minutes beginning at 13:38 PM. Thank you for the opportunity to participate in the care of this patient. Gisel Goetz PT, DPT, CLT [facility] [place], [place]
[2021-04-02] MEDS: Nicotine 14 MG/24 HR PATCH TD (14:46)
--- NOTE | 2021-04-02 16:25 | W.PM.PROGNOT ---
Date of Service Date of service: 04/02/21 Time of Service: 16:25 Assessment and Plan Assessment and plan (1) Acute lumbar radiculopathy: Status: Acute Assessment and plan: MRI obtained shows L4-L5 disc protrusion with nerve root compression as the cause of her pain that has been refractory to outpatient pain control regimens. She will be admitted for a more aggressive pain regimen. She did receive a dose of steroids in the ED. I did consider these but they have shown little to no benefit in clinical studies so will hold off for now. - 1g Tylenol q6h - ibuprofen 600mg tid prn - 2mg IV morphine q4h prn - Miralax daily while on narcotics (2) Smoker: Status: Acute Assessment and plan: Long standing nicotine addiction. -nicotine patches available as needed (3) Impaired ambulation: Status: Acute Assessment and plan: Due to pain. I am hopeful that better pain control her ambulation will improve. - pain control - PT consult placed (4) Former consumption of alcohol: Status: Acute Assessment and plan: Former alcohol use disorder but she stopped drinking several years ago, no acute concerns. (5) Insomnia: Status: Acute Assessment and plan: She takes trazodone and citalopram every night at home to help with sleep issues, we will continue this. - continue home trazadone - continue home citalopram discussed with Dr Mathews Qualifiers: Insomnia type: unspecified Qualified Code(s): G47.00 - Insomnia, unspecified Subjective Subjective Patient reports: still having pain, tolerating liquids well, tolerating a regular diet, no bowel movement (for one week.) and afebrile Interval history since last seen: states shes unable to walk Exam Const General: comfortable and no acute distress Nutritional Appearance: thin Orientation: alert, awake and oriented x3 HENMT Head: normal to inspection Mouth: oral mucosae normal Resp Effort & Inspection: normal respiratory effort Auscultation: clear to auscultation bilaterally Cardio Rate: regular rate Rhythm: regular rhythm GI Inspection: normal to inspection Palpation: soft Auscultation: normal bowel sounds Skin General skin exam: no rashes or lesions noted Neuro General: patient alert and patient awake Cognition: normal cognition Speech: speech normal Motor: muscle tone normal throughout Extrem General: normal to inspection, full ROM and no pedal edema Objective Last Vital Signs Temp 37.0 C 04/02/21 11:41 Pulse 77 04/02/21 11:41 Resp 18 04/02/21 11:41 BP 117/79 04/02/21 11:41 Pulse Ox 95 04/02/21 11:41 Laboratory Results - last 24 hr 04/01/21 04/02/21 04/02/21 20:50 05:45 06:15 WBC Cancelled RBC Cancelled Hgb Cancelled Hct Cancelled MCV Cancelled MCH Cancelled MCHC Cancelled RDW Cancelled Plt Count Cancelled MPV Cancelled Immature Gran % Neutrophils % Lymphocytes % Monocytes % Eosinophils % Basophils % Nucleated RBC % Absolute Neutrophils Absolute Lymphocytes Absolute Monocytes Absolute Eosinophils Absolute Basophils Sodium 133 L Potassium 4.4 Chloride 99 Carbon Dioxide 25.0 Anion Gap 9.0 BUN 28 H Creatinine 0.6 Estimated GFR/1.73 m2 >= 60.00 Glucose 110 H Calcium 9.5 COVID-19 Source Nasal/Nares SARS-CoV-2 (PCR) Negative 04/02/21 06:15 WBC 7.44 D RBC 4.94 Hgb 15.1 Hct 46.4 H MCV 93.9 MCH 30.6 MCHC 32.5 RDW 12.3 Plt Count 303 MPV 10.3 Immature Gran % 0.1 Neutrophils % 73.6 Lymphocytes % 20.7 Monocytes % 5.2 Eosinophils % 0.3 Basophils % 0.1 Nucleated RBC % 0 Absolute Neutrophils 5.48 Absolute Lymphocytes 1.54 Absolute Monocytes 0.39 Absolute Eosinophils 0.02 Absolute Basophils 0.01 Sodium Potassium Chloride Carbon Dioxide Anion Gap BUN Creatinine Estimated GFR/1.73 m2 Glucose Calcium COVID-19 Source SARS-CoV-2 (PCR)
[2021-04-02] MEDS: Enoxaparin 40 MG/0.4 ML SYR SC (20:52)
[2021-04-02 21:01] VITALS: BP 111/75; PULSE 75; RESP 18; TEMP 36.4; O2SAT 97
[2021-04-02] MEDS: traZODone 50 MG TAB PO (22:27)
[2021-04-02] MEDS: Citalopram 20 MG TAB PO (22:27)
[2021-04-03] MEDS: diazePAM 2 MG TAB PO (02:41)
[2021-04-03] MEDS: Acetaminophen 325 MG TAB 650 MG PO ×2 (05:31→10:11)
[2021-04-03] MEDS: Polyethylene Glycol 3350 17 GM PACKET PO (07:45)
[2021-04-03] MEDS: Ibuprofen 600 MG TAB PO ×2 (07:45→11:48)
[2021-04-03] MEDS: Pantoprazole 40 MG TABCR PO (07:46)
[2021-04-03] MEDS: Normal Saline Flush 10 ML SYR IVP (07:46)
[2021-04-03] MEDS: MORPHine 4 MG/ML SYR 2 MG IVP (07:46)
[2021-04-03 07:50] VITALS: BP 124/73; PULSE 69; RESP 17; TEMP 35.8; O2SAT 96
[2021-04-03] MEDS: Lidocaine 5% Patch 2 PATCH TP (10:11)
--- NOTE | 2021-04-03 10:11 | CMPROGNOTE_ITS ---
- If Service Date Differs Date of service: 04/03/21 Time of Service: 10:11 Care Management Progress Note S/O: A: 51 year old female admitted to [facility] on 04/01/21 for L4-L5 disc protrusion with nerve root compression and impaired ambulation. P: Sherri will likely be discharged home with new [facility] PT vs SNF for short term rehab. Transportation dependent on her disposition. She will follow up with her community providers and plan of care. CM will continue to support Sherri and her discharge needs.
[2021-04-03] MEDS: traMADol 50 MG TAB 100 MG PO (11:47)
[2021-04-03 12:11] VITALS: BP 107/72; PULSE 76; RESP 17; TEMP 36.7; O2SAT 96
--- NOTE | 2021-04-03 12:17 | W.PM.DS.N ---
Date of service: 04/03/21 Time of Service: 12:17 DS: Diagnosis Discharge Diagnosis (1) Acute lumbar radiculopathy: Status: Acute (2) Impaired ambulation: Status: Acute Discharge Plan Disposition Patient Disposition: HOME Condition: Improving Discharge Details Reason For Visit: Lumbar Disc Protrusion Admit Date/Time: 04/01/21 19:21 Admit Provider: Guru Fernandez Attending Provider: Guru Fernandez Primary Care Provider: Zaid Callahan Hospital Course Hospital Course: This is an otherwise healthy 51 yo female who initially presented to the ED on 03/28/21 for hip and back pain. At that visit Xrays of the hip and lumbar spine were obtained and non-revealing. She was offered admission at that time for pain control but the patient refused and requested discharge to attempt a home outpatient pain regimen. Unfortunately she did not improve in the interim and developed worsening pain. She represented to the ED for this reason. She underwent MRI that found L4-L5 right forimanal disc protrudement causing nerve root impingement. She has received IM Dilaudid, tordal and prednisone in the ED without much improvement in her pain. She was admitted for acute lumbar radiculopathy refractory to outpatient pain management. She was evaluated by physical therapy. Pain management adjusted with good effect. She has been eating and drinking and bowels functioning after aggressive bowel management. She is now able to safely reambulate and is requesting discharge to home. She is being discharged to home with outpatient referral for physical therapy. She should also f/u with pcp and discuss referral to underwriting specialist. Discharge discussed with DR Fernandez. Home Meds and New Rx's Prescriptions: New Acetaminophen [Tylenol] 650 mg PO 0600,1000,1400,1800 Qty: 0 RF: 0 tramadol 50 mg Tablet 100 mg PO Q6H PRN PRNQty: 12 RF: 0 lidocaine 5 % Adhesive Patch,Medicated 2 patch topical Q24H Qty: 14 RF: 0 ibuprofen 600 mg Tablet 600 mg PO QID Qty: 30 RF: 0 Continued trazodone 50 mg Tablet 50 mg PO QHS RF: 0 citalopram 20 mg Tablet 20 mg PO QHS RF: 0 Discharge Instructions Instructions: Acute Low Back Pain (ED) Additional Instructions: continue ibuprofen and acetaminophen as directed can use heat or ice for comfort. no lifting greater than 5 pounds until symptoms resolved no bending or twisting at the waist Stand Alone Forms: Nursing Discharge Form Referrals: Zaid Callahan PA [Primary Care Provider] - [facility] [OTHER] - Activity:: lifting restriction Equipment/Supplies:: No Equipment Needed Diet:: As Tolerated Discharge Orders Discharge Orders: Discharge Order (Routine); Ordered 04/03/21 Ordered By: Kiarra Mcguire DS: Summary Time Spent with Patient providing and/or coordinating discharge services: Less than 30 minutes Status at Discharge Functional status at discharge: independent ambulation Overall status at discharge: patient is progressing back to baseline Mental Status: mental status grossly normal Speech and Movement: speech and movement normal Mood: congruent mood Affect: normal affect Exam Const General: comfortable and no acute distress Nutritional Appearance: thin Orientation: alert, awake and oriented x3 HENMT Head: normal to inspection Mouth: oral mucosae normal Resp Effort & Inspection: normal respiratory effort Auscultation: clear to auscultation bilaterally Cardio Rate: regular rate Rhythm: regular rhythm GI Inspection: normal to inspection Palpation: soft Auscultation: normal bowel sounds Skin General skin exam: no rashes or lesions noted Neuro General: patient alert and patient awake Cognition: normal cognition Speech: speech normal Motor: muscle tone normal throughout Extrem General: normal to inspection, full ROM and no pedal edema Psych Mental Status: mental status grossly normal Speech and Movement: speech and movement normal Mood: congruent mood Affect: normal affect DS: Data Vitals/I&O Vitals and I&O: Vital Signs Temperature 36.7 C 04/03/21 12:11 Temperature Source Tympanic 04/03/21 12:11 Pulse 76 04/03/21 12:11 Pulse Rhythm Regular 04/03/21 08:30 Respiratory Rate 17 04/03/21 12:11 Respiratory Effort Non-Labored 04/03/21 08:30 Respiratory Depth Normal 04/03/21 08:30 Respiratory Pattern Normal 04/03/21 08:30 Blood Pressure 107/72 04/03/21 12:11 Blood Pressure Position Supine 04/01/21 14:00 Pulse Oximetry 96 04/03/21 12:11 Oxygen Delivery Method Room Air 04/03/21 12:11 Oxygen Flow Rate 0 04/03/21 12:11 Pain Level 2 04/03/21 12:11 Intake & Output 02/05/1904/03/21 04/03/21 23:59 11:59 23:59 Intake Total 300 / 300 360 / 360 Output Total 1000 / 1800 1450 / 1450 Balance -700 / -1500 -1090 / -1090 Intake: Oral 300 / 300 360 / 360 Output: Urine 1000 / 1800 1450 / 1450 Other: Urine Color Yellow Yellow Urine Appearance Clear Clear Urine Odor Normal Normal Comment BSC Stool Size Moderate Stool Characteristics Soft Liquid Voiding Methods Bedside Commode Bedside Commode PFSH All Active Problems (Updated 04/01/21 @ 21:39 by Marta Treviño MD) Insomnia (Acute) Former consumption of alcohol (Acute) Lumbar disc herniation (Acute) Lumbar nerve root compression (Acute) Impaired ambulation (Acute) Smoker (Acute) L4-L5 disc bulge (Acute) Acute lumbar radiculopathy (Acute) Acute pain of right hip (Acute) Low back pain (Acute) Social History Smoking/Tobacco Use Status: Current every day Tobacco Type: cigarettes Smoking risk assessment performed?: Yes Alcohol Intake: former Drug use: Never Substance use type: does not use Do you feel safe at home: Yes Do you feel safe in your relationship?: Yes
--- NOTE | 2021-04-03 12:44 | INDS_ITS ---
Date of service: 04/03/21 Time of Service: 12:44 PT Notes Visit Reasons: Lumbar Disc Protrusion Physical Therapy Inpatient Initial Evaluation Date: 04/03/2021 Dates of Service: 04/02/2021 through 04/03/2021 Referring Doctor: Marta Jackson MD PT Orders: PT CONSULT: Eval/Treat Precautions: Fall. Standard. Activity as tolerated. 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 PMHX: All Active Problems (Updated 04/01/21 @ 21:39 by Marta Treviño MD) Insomnia (Acute) Former consumption of alcohol (Acute) Lumbar disc herniation (Acute) Lumbar nerve root compression (Acute) Impaired ambulation (Acute) Smoker (Acute) L4-L5 disc bulge (Acute) Acute lumbar radiculopathy (Acute) Acute pain of right hip (Acute) Low back pain (Acute) Social History/Home Situation: Lives with jose in a private room with 5 steps to enter and with 10 steps to the second of the house where their bedroom is. 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 She states that sitting triggers the pain as it compresses on the nerve in her R buttock. She did report considerable pain while using the commode but felt relieved after a few minutes of short bed rest. Objective: General Observation: Highly favoring R hip and R buttock. Unable to tolerate sitting position for more than a minute. Mental Status: Alert and oriented as to person, place, time, and purpose. Able to pay attention, focus, and respond appropriately. Pain: 7/10 with sitting being the most painful position ROM: Trunk: Unable to test due to positional pain but is able to bedn trunk for sit<>stand and for sit<>supine with less pain compared to yesterday Right Upper Extremity: Shoulder Flexion WFL. Shoulder abduction WFL. Elbow flexion WFL. Wrist flexion WFL. Functional opening and closing of hand WFL. Left Upper Extremity: Shoulder Flexion WFL. Shoulder abduction WFL. Elbow flexion WFL. Wrist flexion WFL. Functional opening and closing of hand WFL. Right Lower Extremity: Hip flexion WFL. Hip abduction WFL. Knee flexion WFL. Ankle dorsiflexion WFL. Ankle plantarflexion WFL. Left Lower Extremity: Hip flexion WFL. Hip abduction WFL. Knee flexion WFL. Ankle dorsiflexion WFL. Ankle plantarflexion WFL. Strength: Right Upper Extremity: Shoulder flexors 5/5. Shoulder abductors 5/5. Elbow flexors 5/5. Elbow extensors 5/5. Tariff Compiler strong. Left Upper Extremity: Shoulder flexors 5/5. Shoulder abductors 5/5. Elbow flexors 5/5. Elbow extensors 5/5. Tariff Compiler strong. Right Lower Extremity: Hip flexors 3/5. Hip abductors 3/5. Knee flexors 3/5. Knee extensors 3/5. Ankle dorsiflexors 5/5. Ankle plantarflexors 5/5. Left Lower Extremity: Hip flexors 3/5. Hip abductors 3/5. Knee flexors 3/5. Knee extensors 3/5. Ankle dorsiflexors 5/5. Ankle plantarflexors 5/5. Bed Mobility/Transfers: Rolling with independent Left side-lying to sit independent Sit to left side-lying independent Sit to stand supervision Stand to sit supervision Bed to bedside commode supervision Bedside commode to bed supervision Bed to reclining chair supervision Reclining chair to bed supervision Gait: 25 feet + 25 feet using the FWW with full weight bearing with stand by assist Balance: Static Sitting: Fair Dynamic Sitting: Fair Static Standing: Fair Dynamic Standing: Fair Special Tests: Mobility Limitations Standardized Measure [facility]-PAC 6 clicks Basic Mobility Inpatient Short Form: Raw Score: 7 CMS Score: 92% deficit Tripod sign: Positive SLR: Up to 30 degrees only due to pain FABERE Test: Unable Palpation of R lumbar paraspinals: Tenderness presentr Assessment: Patient is now able to move out of bed and is able to walk a short distance using the FWW with tolerable pain at 5-6/10 in the R buttock and R hip. Will benefit from the use of FWW to help off load hip and pelvis while maximizing independence at home. Refused to try out the stairs stating that her fimalik will be able to help her and took advice of PT to step up with the good and down with the bad foot to reduce pain complaint. She will have the support of her fimalike at home. She has a front-wheeled walker at home that she can use. Patient presents with clinical signs and symptoms consistent with current/admitting diagnoses that have resulted to mobility limitations, gait instability, generalized weakness, and overall ADL decline as demonstrated by the following impairment level findings: 1. Decreased strength to R hip and knee major muscle groups 2. Impaired sitting/standing balance 3. Impaired activity tolerance 4. Limitation of joint range of motion in R hip 5. R lumbar thigh and buttock pain at 7/10 Impairments are contributing to the following functional limitations: 1. Difficulty with ambulation without assistive device 2. Increased completion time for mobility ADL performance 3. Increased risk for falls 4. Difficulty with managing steps alone safely Goals: Goals X1 week 1. Supine-Sit independent MET 2. Sit-Supine independent MET 3. Sit-Stand independent MET 4. Stand-Sit independent with no AD NOT MET 5. Bed-Chair independent with no AD NOT MET 6. Chair-Bed independent with no AD NOT MET 7. Independent gait on level surface with use of FWW for at least 200 feet without report of pain nor dyspnea NOT MET 8. Independent stair negotiation while holding onto B rails for at least 10 steps without report of pain nor dyspnea NOT MET 9. Good static and dynamic standing balance/tolerance NOT MET Plan of Care/Treatment Plan: 1-2x/day, 7 days/week x 1 week. Plan of care has been reviewed with the [facility] providing the service under Physical Therapy direction. Initiate Physical Therapy intervention for pain management as needed, strengthening, bed mobility, transfers, gait, stairs, balance training, and use of assistive device. DISCHARGE RECOMMENDATIONS: [} Home with no services [] [] Home with services [specify] [X] Home with outpatient PT. Home when medically cleared by hospitalist. May benefit from outpatient PT services to continue back rehabilitation for pain management, core strengthening, and mobility progression. [] SNF for continued rehabilitation [] [] [facility] [] [] SNF versus LTC based on ability to participate and progress [] TREATMENT CODE/TIME: Session [id number] x 15 minutes, 27816 x 13 minutes beginning at 10:15 AM. Session [id number] x 15 minutes beginning at 12:44 PM. Thank you for the opportunity to participate in the care of this patient. Gisel Goetz PT, DPT, CLT [facility] [place], [place]
--- NOTE | 2021-04-03 15:58 | PDOC.CMDIS ---
- If Service Date Differs Date of service: 04/03/21 Time of Service: 15:58 LACE Index Scoring Tool - Questions: Length of Stay (in days): 3 Acuity (Admit via E.D.?): Yes E.D. Visits: 1 - Answers: Total Score: 7 Risk of Readmission: Low Risk Care Management Discharge Reason for Hospitalization: acute lumbar radiculopathy Discharge Plan: Discharge home via private vehicle with family. No new services are needed at this time. Follow up with community providers and discharge plan of care as prescribed. Patient/Family Education Needs: Review discharge instructions, limitations and plan to follow up with community providers. ask me three.
== END 2021-04-03 13:47 | disposition home or self-care (01) | DRG 552 ==
LOC: ER 20:30 → MS 20:52
PROVIDERS: Student in an Organized Health Care Education/Training Program; Admitting Provider Family Medicine; Emergency Provider Student in an Organized Health Care Education/Training Program; PCP Physician Assistant Medical; Visit Provider Family Medicine
DX: M51.16 Intervertebral disc disorders with radiculopathy, lumbar region (principal); F17.210 Nicotine dependence, cigarettes, uncomplicated; R26.2 Difficulty in walking, not elsewhere classified; G47.00 Insomnia, unspecified
CPT/HCPCS: 36415; 80048; 80053; 85027; 85652; 87635; 96372; 96374; 97110; 97162; 97530; 99284; 99285; J1650; 72148; 85025; 86140; 99222; 99233; 99238; J1885; J2270; J7512

== ENCOUNTER 2021-10-05 11:43 | Outpatient (REF) | payer MEDICAID, SELFPAY ==
[2021-10-05 16:08] LABS: Abs Immature Grans 0.01 10^3/uL (0.0-0.06); Absolute Basophil Count 0.06 10^3/uL (0.0-0.2); Absolute Eosinophil Count 0.16 10^3/uL (0.0-0.7); Absolute Lymphocyte Count 1.52 10^3/uL (1.2-3.4); Absolute Monocyte Count 0.58 10^3/uL (0.1-0.8); Absolute Neutrophil Count 5.27 10^3/uL (1.2-6.7); Basophils % 0.8; Eosinophils % 2.1; HCT 46.9 % (36.0-46.0); HGB 15.7 g/dL (11.2-15.7); Immature Grans % 0.1; MCH 31.3 pg (27.0-33.0); MCHC 33.5 % (32.0-36.0); MCV 93 fL (80-95); MPV 10.3 fL (8.0-11.0); Monocytes % 7.6; Neutrophils % 69.4; Platelet Count 292 10^3/uL (130-400); RBC 5.02 10^6/uL (3.93-5.22); RDW 13.7 % (11.7-14.6); RDW-SD 47.2 fL
[2021-10-05 16:46] LABS: ALT 19 U/L (14-59); AST 17 U/L (15-37); Albumin 3.6 g/dL (3.4-5.0); Alkaline Phosphatase 92 U/L (46-116); Anion Gap 9.2 mmol/L (3-11); BUN 14 mg/dL (7-18); Bilirubin, Total 0.3 mg/dL (0.2-1.0); CO2 26.8 mmol/L (21.0-32.0); CREATININE 0.7 mg/dL (0.55-1.02); Calcium 8.8 mg/dL (8.5-10.1); Chloride 103 mmol/L (98-107); Cholesterol 287 mg/dL (<200); Glucose 87 mg/dL (74-106); HDL Cholesterol 47 mg/dL (40-60); Potassium 4.1 mmol/L (3.5-5.1); Sodium 139 mmol/L (136-145); TSH (W/Ref FT4) 3.36 uIU/mL (0.36-3.74); Total Protein 7.8 g/dL (6.4-8.2); Triglyceride 438 mg/dL (<150)
[2021-10-05 17:29] LABS: LDL CHOLESTEROL 176 mg/dL (<100)
== END 2021-10-05 11:44 | disposition home or self-care (01) ==
LOC: NCHCN 11:43
PROVIDERS: PCP Physician Assistant Medical; Visit Provider Physician Assistant Medical
DX: Z01.818 Encounter for other preprocedural examination (principal); Z00.8 Encounter for other general examination
CPT/HCPCS: 80053; 80061; 83721; 84443; 85025

== ENCOUNTER → 2021-12-21 01:54 | Outpatient (CLI) | payer MEDICAID, SELFPAY ==
--- NOTE | 2021-12-21 12:45 | DI.MAMMO_ITS ---
Exam(s) MAMMO SCREENING EXAM: MAMMO SCREENING CLINICAL HISTORY: SCREENING, HEALTH MAINTENANCE EXAM, Z00.8 TECHNIQUE: Mammograms were interpreted according to the usual protocol including computer analysis w [employer] CAD system, tomosynthesis and C-view imaging. COMPARISON: 2016 FINDINGS: The breasts are composed of scattered fibroglandular densities, Breast Density category B. No suspicious masses or suspicious microcalcifications are seen. No skin thickening or abnormal axillary lymph nodes are seen. There has been no significant change from prior exams. IMPRESSION: BI-RADS Category 1, Negative mammogram Yearly screening mammography is recommended. Breast Density - Category B, scattered fibroglandular densities. A negative radiographic report should not delay biopsy if a dominant or clinically suspicious mass is present. Up to ten percent of cancers are not identified on mammography. A negative report may reinforce clinical impression. Adenosis and dense breasts may obscure an underlying neoplasm. False positive reports average 6 to 10%. Patient will receive a letter notifying them of these results.
== END ==
PROVIDERS: PCP Physician Assistant Medical; Visit Provider Physician Assistant Medical
DX: Z12.31 Encounter for screening mammogram for malignant neoplasm of breast (principal)
CPT/HCPCS: 77063; 77067

== ENCOUNTER 2024-01-31 01:07 | Outpatient (CLI) | payer BC, SELFPAY ==
--- NOTE | 2024-01-31 | DI.MAMMO_ITS ---
Exam(s) MAMMO SCREENING EXAM: MAMMO SCREENING CLINICAL HISTORY: SCREENING, FAMILY H/O BREAST CA,Z12.31 TECHNIQUE: Mammograms were interpreted according to the usual protocol including computer analysis w [employer] CAD system, tomosynthesis and C-view imaging. COMPARISON: 2015 and 2021 FINDINGS: The breasts are composed of scattered fibroglandular densities, Breast Density category B. No suspicious masses or suspicious microcalcifications are seen. No skin thickening or abnormal axillary lymph nodes are seen. There has been no significant change from prior exams. IMPRESSION: BI-RADS Category 1, Negative mammogram Yearly screening mammography is recommended. Breast Density - Category B, scattered fibroglandular densities. A negative radiographic report should not delay biopsy if a dominant or clinically suspicious mass is present. Up to ten percent of cancers are not identified on mammography. A negative report may reinforce clinical impression. Adenosis and dense breasts may obscure an underlying neoplasm. False positive reports average 6 to 10%. Patient will receive a letter notifying them of these results.
== END 2024-01-31 01:27 ==
PROVIDERS: PCP Physician Assistant Medical; Visit Provider Physician Assistant Medical
DX: Z12.31 Encounter for screening mammogram for malignant neoplasm of breast (principal); R92.323 Mammographic fibroglandular density, bilateral breasts
CPT/HCPCS: 77063; 77067

== ENCOUNTER 2024-05-04 06:54 | Day surgery (SDC) | payer BC, SELFPAY ==
--- NOTE | 2024-05-03 15:33 | W.PM.DSUDISC ---
Date of service: 05/04/24 Discharge Plan Disposition Patient Disposition: Home Condition: Good Discharge Details Reason For Visit: screening colonoscopy Attending Provider: Issac Irene Primary Care Provider: Zaid Callahan Home Meds and New Rx's Prescriptions: Continued trazodone 50 mg Tablet 50 mg PO QHS citalopram 20 mg Tablet 20 mg PO QHS Discontinued bisacodyl [Dulcolax (bisacodyl)] 5 mg tablet,delayed release (DR/EC) 5 mg PO ONCE Qty: 4 0RF Rx Instructions: Take per colonoscopy instructions provided by ordering providers office polyethylene glycol 3350 17 gram/dose powder 17 g PO ONCE Qty: 238 0RF Rx Instructions: Take per colonoscopy instructions provided by ordering providers office Discharge Instructions Instructions: Colon polyps, Diverticulosis Additional Instructions: Sherri, I hope you are comfortable through the colonoscopy today. Everything went very smoothly. I removed several polyps, and these will be sent off for testing today just like we talked about beforehand. To be honest, many of the polyps appear hyperplastic, and if that is correct, those are no risk at all. If you have them, however appear more consistent with the adenomatous type polyps that are associated with colon cancers. Certainly, these are nothing to worry about. Once my office gets all the results on the polyp report, we will be in touch with any other recommendations. If you need anything in the meantime, please do not hesitate to call. 1. If tolerated, consume a soft, low fiber diet for 1-2 days. 2[address] Do not drive, drink alcohol, operate machinery, make critical decisions, or do activities that require coordination or balance for 24 hours. 3. Because air was put into your colon during the procedure, expelling air from your rectum (passing gas or farting) is normal. 4. You may not have a bowel movement for 1-3 days because of the colonoscopy prep. This is normal. 5. Go directly to the emergency room if you notice any of the following: Develop chills (warm to touch), or if you have a thermometer and your temperature is above 101 Difficulty breathing or difficultly swallowing Persistent vomiting Severe abdominal pain, other than gas cramps Severe chest pain Black, tarry stools Any bleeding ? exceeding one tablespoon 6. Call your physician if the site where your intravenous was started becomes red, swollen, painful, and warm to touch. 7. Your physician has reviewed your pre-procedure medications. Please continue to take those medications as previously ordered. You will be given specific information/education regarding any changes to your medications before leaving. Stand Alone Forms: Anesthesia Discharge InstJalen Duncan (DSU) Activity:: Activity as Tolerated Diet:: As Tolerated Discharge Orders Discharge Orders: Discharge Order (Routine); Ordered 05/03/24 Ordered By: Issac Irene DS: Diagnosis Discharge Diagnosis (1) Encounter for screening colonoscopy: Status: Acute Asessment and Plan: Follow-up on polypectomy results
--- NOTE | 2024-05-03 15:35 | W.COLOREPORT ---
Date of service: 05/04/24 Time of Service: 08:58 Colonoscopy Report Date of procedure: 05/04/24 Pre-op diagnosis general: screening colonoscopy Post-op diagnosis procedure note: other (Diverticulosis, colon rectal polyps) Procedure: colonoscopy with polypectomy Surgeon: Issac Irene Anesthesia Type: General:No Airway Estimated blood loss (mL): 10 Pathology: other (0.25 cm rectal polyps x 3, 0.25 cm polyps at 40 cm x2 , 0.5 cm polyp at 40 cm, 0.5 cm polyp at 25 cm) Complications: None Disposition: same day Indications: Sherri is a 54 year old woman who needs a screening colonoscopy Prep: Miralax/Dulcolax Procedure Start Time: 08:14 Procedure End Time: 08:43 Retraction Time: 17 Findings: Sigmoid diverticulosis, 0.25 cm rectal polyps x 3, 0.25 cm polyps at 40 cm x2 , 0.5 cm polyp at 40 cm, 0.5 cm polyp at 25 cm Procedure Description: After the induction of anesthesia, and with the patient in left lateral decubitus position, I began by performing an external anorectal exam.? Perineum and skin were normal, as was the anal verge.? There are some old external hemorrhoids.? Next, I performed a digital rectal exam.? I did not appreciate any abnormal findings.? Next, I advanced a colonoscope into the rectal vault.? I performed retroflexion.? This appeared normal.? There were multiple subcentimeter rectal polyps. Narrowband imaging was used to assist with the analysis. 2 of the larger polyps that appeared consistent with hyperplastic's were removed with cold forceps polypectomy. A third polyp had some adenomatous features, and this was also removed with cold forceps polypectomy. There is minimal bleeding from the sites. Using insufflation, I then advanced the colonoscope beyond the rectal folds and into the sigmoid colon before advancing towards the cecum.? The scope was noted to be in the cecum by identification of the ileocecal valve and appendiceal orifice.? I then began withdrawing the colonoscope using repeated irrigation as necessary for full evaluation of the colonic mucosa. Around 40 cm from the anal verge were 2 polyps. These were both flat, and less than 0.25 cm. These were removed with cold forceps. Another polyp was also found at 40 cm which was a bit larger. This was flat, and around 0.5 cm. This was removed in piecemeal with cold forceps. These polypectomy sites all look fine. There was some sigmoid diverticulosis. 1 last polyp measuring about 0.5 cm and flat in character was found around 25 cm from the anal verge. This was removed with cold forceps as well. Once the scope was withdrawn to the level of the rectum, great care was taken to examine portions of the rectal folds.? Finally, the scope was withdrawn and the patient was brought to the same-day surgery recovery unit as the anesthetic wore off. ?The findings and instructions were shared with the patient prior to discharge. [place] Bowel Prep [place] Bowel Prep Right Colon: 3 Left Colon: 3 Transverse Colon: 3 Total Score: 9
[2024-05-04 07:12] VITALS: BP 104/72; PULSE 89; RESP 18; TEMP 36.4; O2SAT 97
[2024-05-04] MEDS: Lactated Ringers 1,000 ML 80 ML IV (07:31)
--- NOTE | 2024-05-04 07:37 | W.ANESPRE ---
General Info Date of Service Date Performed: 05/04/24 Height: 5 ft 5 in Weight: 58.4 kg Body Mass Index (BMI): 21.4 Surgical Procedure: Operation Date: 05/04/24 08:20 Proposed Procedure Side Surgeon p Colonoscopy Issac Irene MD Actual Procedure Side Surgeon p Colonoscopy Issac Irene MD Meds Allergies and Home Medications Allergies Allergy/AdvReac Type Severity Reaction Status Date / Time hydromorphone (From Dilaudid) Allergy Unknown unknown Verified 05/04/24 07:04 Antihistamines - Piperazine Allergy Cardiac Verified 05/04/24 07:04 Dysrythmia Sulfa (Sulfonamide Allergy Skin Rash Verified 05/04/24 07:04 Antibiotics) Antihistamines - Alkylamine AdvReac Psychosis Verified 05/04/24 07:04 Home Medication ?Medication ?Instructions ?Recorded citalopram 20 mg tablet 20 mg PO QHS 03/28/21 trazodone 50 mg tablet 50 mg PO QHS 03/28/21 Current Visit Medications: Current Medications Generic Name Dose Route Start Last Admin Trade Name Favianq PRN Reason Stop Dose Admin Ringer's Solution 1,000 mls @ 80 mls/hr 05/04/24 06:00 05/04/24 07:31 IV 05/04/24 23:59 80 mls/hr INFUSION [place] Administration IV Miscellaneous Supplies 1 each 05/04/24 06:00 Iv Access IV 05/04/24 23:59 DIRECTED [place] Sodium Chloride 0 ml 05/04/24 06:00 Normal Saline Flush 10 Ml Syr IV 05/04/24 23:59 PRN PRN Sodium Chloride 0 ml 05/04/24 06:00 Normal Saline 10 Ml Vial IJ 05/04/24 23:59 DIRECTED PRN Sterile Water 0 ml 05/04/24 06:00 Water,Injection,Sterile 10 Ml Vial IJ 05/04/24 23:59 DIRECTED PRN PFSH Active Problems Active Problems: Problem Status Onset Code Encounter for screening colonoscopy Acute Z12.11 Lumbar nerve root compression Acute M54.16 Lumbar disc herniation Acute M51.26 L4-L5 disc bulge Acute M51.26 Acute lumbar radiculopathy Acute M54.16 Medical History Medical History Thyroid function test abnormal Anxiety Hyperlipemia Insomnia Former consumption of alcohol Smoker Surgical History Surgical History Previous back surgery Tobacco Smoking/Tobacco Use Status: Current every day Tobacco Type: cigarettes Alcohol Alcohol Intake: former Substance Use Substance use: Never Substance use type: does not use Vital Signs and Lab Results Vital Signs Most Recent Vital Signs in EMR: Most Recent Vital Signs Temp Pulse Resp BP Pulse Ox 36.4 C L 89 18 104/72 97 05/04/24 07:12 05/04/24 07:12 05/04/24 07:12 05/04/24 07:12 05/04/24 07:12 Lab Results Blood Type / Crossmatch: No Data to Display Complete Blood Count: No Data to Display Complete Metabolic Panel: No Data to Display Liver Function Panel: No Data to Display Coagulation Panel: No Data to Display Cardiac Panel: No Data to Display Arterial Blood Gas: No Data to Display Venous Blood Gas: No Data to Display Pancreas Panel: No Data to Display Thyroid Panel: No Data to Display Infectious Disease: No Data to Display Blood Cultures: No Data to Display Toxicology Panel: No Data to Display Anesthesia Assessment and Plan Anesthesia History Personal History: No History of Anesthesia Complications Family History: No Family History of Anesthesia Complications Exercise Tolerance Exercise Tolerance: Metabolic Equivalents>4 Pertinent Negatives Pertinent Negatives: No Symptoms of GERD, No Major Cardiovascular Symptoms or Complaints and No History of CVA/TIA Cardiac & Pulmonary Exam Cardiac Exam: Normal S1/S2 Heart Sounds Pulmonary Exam: Wheezing Present (RUL cleared with cough) and Active Dry Cough Implantable Cardiac Device Does patient have a Pacemaker or an ICD?: No Airway Exam Known Difficult Airway: No Mallampati Class: 2 Mouth Opening: Normal (> 3cm) Thyromental Distance: Greater than 3 cm Neck Range of Motion: Full ROM Neck Circumference: Normal Teeth Condition: Removable Dentures/Plates Upper and Edentulous ASA Classification ASA Score: ASA 2 Emergency Case?: No NPO Status NPO Status: NPO Clears >2 hours, Solids >8 hours Anesthesia Plan Resuscitation Status: Full Code Anesthesia Technique: General Anesthesia Airway Planned: Natural Airway Monitors Used: Standard Monitors
[2024-05-04 08:05] VITALS: BMI 21.4
--- NOTE | 2024-05-04 08:16 | BOWEL_PTH ---
PATIENT: Sherri Hayes LOC: [facility] U#:[id number] AGE/SX: 54/F ROOM: RE05/04/[address]: Issac Irene MD : 1970 BED: DIS: 05/04/2024 SPEC #: [id number] RECD: 05/04/24 12:14 STATUS: YANCI RE #: [id number] LUCILA: 05/04/24 08:[address]: Issac Irene DEPT: Surgical Specimen RECD BY: Shraddha Arellano ENTERED: 05/04/24 12:16 SP TYPE: Bowel OTHR DR: Zaid Callahan Tissues: 1 - BIOPSY BOWEL 2 - BIOPSY BOWEL 3 - BIOPSY BOWEL 4 - BIOPSY BOWEL Procedures: GROSS AND MICRO LEVEL 4 Comments: [id number]
[2024-05-04 08:50] VITALS: BP 102/59; PULSE 80; RESP 16; TEMP 36.1; O2SAT 97
--- NOTE | 2024-05-04 09:14 | W.ANESPOSTOP ---
Postoperative Evaluation Date, Time and Location Date Performed: 05/04/24 Time Performed: 09:14 Patient Location: Day Surgery Unit Vital Signs Most Recent Imported Vital Signs: Most Recent Vital Signs Temp Pulse Resp BP Pulse Ox 36.1 C L 80 16 102/59 L 97 05/04/24 08:50 05/04/24 08:50 05/04/24 08:50 05/04/24 08:50 05/04/24 08:50 Pain Score Most Recent Pain Score: Most Recent Pain Score Pain Level 0 05/04/24 08:50 Assessment Mental Status: Awake (Alert & Oriented to Patient Baseline) Airway and Respiratory Function: Patent airway with normal (patient baseline) respiratory exam Cardiovascular Function: Hemodynamically Stable Hydration Status: Adequately Hydrated Nausea & Vomiting: No Nausea or Vomiting Pain: Pt. Denies Any Pain Peripheral Nerve Block: Patient did not receive a nerve block
[2024-05-04 09:18] VITALS: BP 103/75; PULSE 84; RESP 18; TEMP 36.1; O2SAT 100
== END 2024-05-04 09:22 | disposition home or self-care (01) ==
PROVIDERS: PCP Physician Assistant Medical; Visit Provider Surgery
PROC: 0DJD8ZZ Inspection of Lower Intestinal Tract, Via Natural or Artificial Opening Endoscopic (ICD-10-PCS; CPT 45378; principal; 2024-05-04 08:15)
DX: Z12.11 Encounter for screening for malignant neoplasm of colon (principal); K57.30 Diverticulosis of large intestine without perforation or abscess without bleeding; K62.1 Rectal polyp; K63.89 Other specified diseases of intestine; K63.5 Polyp of colon
CPT/HCPCS: 45380; 88305; J2704

== ENCOUNTER 2025-02-19 13:51 | Outpatient (REF) | payer BC, SELFPAY ==
--- NOTE | 2025-02-19 11:15 | PAPFT_PTH ---
PATIENT: Sherri Hayes LOC: [facility]#:[id number] AGE/SX: 55/F ROOM: RE02/19/[address]: Zaid Callahan : 1970 BED: DIS: 02/19/2025 SPEC #: [id number] RECD: 02/19/25 18:32 STATUS: ENT REQ #: [id number] LUCILA: 02/19/25 11:[address]: Zaid Callahan DEPT: [facility] Cytology RECD BY: Shraddha Arellano Tissues: 1 - CX/ENDOCX FOR PAP SMEARS Procedures: PAP THIN PREP/[facility]VM Screening
[2025-02-19 15:32] LABS: Cholesterol 319 mg/dL (<200); HDL Cholesterol 59 mg/dL (>or=50)
[2025-02-19 15:35] LABS: TSH (W/Ref FT4) 2.76 uIU/mL (0.55-4.78)
[2025-02-19 15:45] LABS: Hemoglobin A1C 5.0 % (<5.7)
[2025-02-19 23:31] LABS: HIV-1/2 Ag & Ab Screen Negative (Negative)
[2025-02-19 23:57] LABS: Hepatitis C Ab w Rflx HCV PCR Negative (Negative)
== END 2025-02-19 13:52 | disposition home or self-care (01) ==
LOC: NCHCN 13:51
PROVIDERS: PCP Physician Assistant Medical; Visit Provider Physician Assistant Medical
DX: N76.0 Acute vaginitis (principal); R79.89 Other specified abnormal findings of blood chemistry; Z00.00 Encounter for general adult medical examination without abnormal findings; Z13.220 Encounter for screening for lipoid disorders; Z13.1 Encounter for screening for diabetes mellitus
CPT/HCPCS: 80061; 86803; 87389; 88142; 83036; 84443; 87480; 87510; 87660